=== PATIENT | male | born 1945 | race African-American/Black ===

== ENCOUNTER 2018-01-23 20:05 | Inpatient (IN) | payer MEDICARE, BC ==
--- NOTE | 2018-01-23 20:25 | ER Document Report ---
ED General - General Stated Complaint: STROKE LIKE SYMPTOMS Time Seen by Provider: 01/23/18 20:24 Notes: Patient is a 72-year-old male with diabetes and hypertension that presents to the emergency department for chief complaint of facial droop, slurred speech and weakness. Patient is unable to provide any significant history at this time. Apparently a neighbor had checked on him and found that he had a facial droop and slurred speech so they called EMS and he was brought to the emergency department. Per EMS, the patient had high blood pressure, diabetes and CAD had a prior stroke 20 years ago without deficits and prior to this he was speaking normally, and acting normally and did ambulate. Patient has significant dysarthria, and no further history is obtainable at this time. Past Medical History: Hypertension, diabetes mellitus, CAD, prior CVA Past Surgical History: Not obtainable at this time secondary to dysarthria Social History: Lives at home Family History: Reviewed and noncontributory for presenting illness Allergies: Reviewed, see documented allergy list. REVIEW OF SYSTEMS: Complete review of systems is unobtainable at this time secondary to the patient 's aphasia and dysarthria PHYSICAL EXAMINATION: Vital signs reviewed, nursing noted reviewed. GENERAL: Elderly male, no acute respiratory distress HEAD: Atraumatic, normocephalic. EYES: Eyes appear normal, extraocular movements intact, sclera anicteric, conjunctiva are normal. ENT: nares patent, oropharynx clear without exudates. Moist mucous membranes. Right-sided facial droop, severe dysarthria NECK: Normal range of motion, supple without lymphadenopathy LUNGS: Breath sounds clear to auscultation bilaterally and equal. No wheezes rales or rhonchi. HEART: Regular rate and rhythm without murmurs ABDOMEN: Soft, nontender, normoactive bowel sounds. No rebound, guarding, or rigidity. No masses appreciated. EXTREMITIES: Nontender, good range of motion, no pitting or edema. Strength is +4/5 on the right compared to the left which is 5+5. NEUROLOGICAL: NIH stroke scale score: 10, for facial droop on the right, severe dysarthria, expressive aphasia, right upper and lower extremity weakness, and disorientation PSYCH: Normal mood, normal affect. SKIN: Warm, Dry, normal turgor, no rashes or lesions noted on exposed skin Past Medical History - Social History Smoking Status: Unknown if Ever Smoked Family History: Other - Not obtainable. Physical Exam - Vital signs Vitals: Resp Pulse Ox 17 97 01/23/18 20:16 01/23/18 20:16 Course - Re-evaluation Re-evalutation: Patient seen and examined vital signs reviewed. Laboratory data and imaging were ordered as appropriate for the patient's presenting symptoms and complaint, with consideration of any critical or life threatening conditions that may be associated with their obtained history and exam as noted above. Results were reviewed when available and demonstrated renal impairment, no baseline for comparison, patient's blood pressure was noted to be elevated upon arrival, patient was noted to be on carvedilol and amlodipine, but neighbors stated that the patient may not be taking his medications according to EMS. NIH stroke scale score: 10 Patient is not a TPA candidate as he was last seen normal 2 days ago The patient was re-evaluated and was his speech was somewhat improved, but still rather aphasic, and had persistent weakness on the right side. Evaluation was most consistent with Acute CVA, renal impairment, abnormal troponin Results were discussed with the patient at this point after careful consideration I feel that that patient should be admitted to the hospital. This was discussed with the patient that it is in the best interest for their care to be admitted for further evaluation and management. Patient agreed with this plan of care. A call was placed to the admitted physician, Dr. Rios who graciously accepted the patient onto their service. *Note is created using voice recognition software and may contain spelling, syntax or grammatical errors. Laboratory 01/23/18 01/23/18 01/23/18 20:19 20:20 20:20 WBC 8.1 RBC 4.64 Hgb 14.2 Hct 41.7 MCV 90 MCH 30.6 MCHC 34.1 RDW 14.3 H Plt Count 245 Seg Neutrophils % 76.7 Lymphocytes % 12.8 L Monocytes % 9.1 Eosinophils % 0.6 Basophils % 0.8 Absolute Neutrophils 6.2 Absolute Lymphocytes 1.0 Absolute Monocytes 0.7 Absolute Eosinophils 0.0 Absolute Basophils 0.1 PT 14.1 INR 1.04 APTT 29.3 Sodium Potassium Chloride Carbon Dioxide Anion Gap BUN Creatinine Est GFR ( Amer) Est GFR (Non-Af Amer) Glucose POC Glucose 115 H Calcium Total Bilirubin Direct Bilirubin Neonat Total Bilirubin Neonat Direct Bilirubin Neonat Indirect Bili AST ALT Alkaline Phosphatase Creatine Kinase CK-MB (CK-2) Troponin I Total Protein Albumin 01/23/18 01/23/18 20:20 20:20 WBC RBC Hgb Hct MCV MCH MCHC RDW Plt Count Seg Neutrophils % Lymphocytes % Monocytes % Eosinophils % Basophils % Absolute Neutrophils Absolute Lymphocytes Absolute Monocytes Absolute Eosinophils Absolute Basophils PT INR APTT Sodium 143.6 Potassium 4.3 Chloride 107 Carbon Dioxide 23 Anion Gap 14 BUN 34 H Creatinine 1.83 H Est GFR ( Amer) 45 L Est GFR (Non-Af Amer) 37 L Glucose 126 H POC Glucose Calcium 9.1 Total Bilirubin 1.5 H Direct Bilirubin 0.5 H Neonat Total Bilirubin Not Reportable Neonat Direct Bilirubin Not Reportable Neonat Indirect Bili Not Reportable AST 63 H ALT 25 Alkaline Phosphatase 77 Creatine Kinase 745 H CK-MB (CK-2) 1.32 Troponin I 0.034 Total Protein 7.7 Albumin 4.0 - Vital Signs Vital signs: Temp Pulse Resp BP Pulse Ox 98.0 F 73 17 236/98 H 99 01/23/18 20:20 01/23/18 21:00 01/23/18 22:00 01/23/18 22:00 01/23/18 22:00 - Laboratory Result Diagrams: 01/23/18 20:20 01/23/18 20:20 Laboratory results interpreted by me: 01/23/18 01/23/18 01/23/18 20:19 20:20 20:20 RDW 14.3 H Lymphocytes % 12.8 L BUN 34 H Creatinine 1.83 H Est GFR ( Amer) 45 L Est GFR (Non-Af Amer) 37 L Glucose 126 H POC Glucose 115 H Total Bilirubin 1.5 H Direct Bilirubin 0.5 H AST 63 H Creatine Kinase 745 H - EKG Interpretation by Me Additional EKG results interpreted by me: EKG demonstrates sinus rhythm with a ventricular rate of 64 bpm, normal axis, QTC 463 ms, there is slight ST depressions in leads II, III and aVF, as well as in leads V5 and V6, and a deep T wave inversion in lead V4. No prior EKG available for comparison. Critical Care Note - Critical Care Note Total time excluding time spent on procedures (mins): 38 Comments: Critical care time 38 minutes exclusive from separate billable procedures for a patient requiring complex medical decision making, and high potential for clinical deterioration. In a patient with severe CVA symptoms, and market hypertension, requiring rapid assessment and frequent reassessments. Time spent obtaining history from patient or surrogate, discussions with consultants, development of treatment plan with patient or surrogate, evaluation of patient' s response to treatment, examination of patient, ordering and performing treatments and interventions, ordering and review of laboratory studies, re- evaluation of patient's condition, ordering and review of radiographic studies and review of old charts Discharge - Discharge Clinical Impression: Acute CVA (cerebrovascular accident), Severe dysarthria, Renal impairment, Elevated troponin Hypertension Qualifiers: Hypertension type: unspecified Qualified Code(s): I10 - Essential (primary) hypertension Condition: Stable Disposition: ADMITTED INPATIENT Admitting Provider: Hospitalist - Dr. Rios Unit Admitted: [facility]
[2018-01-23 20:45] LABS: INTERNATIONAL RATION (INR) 1.04; PROTHROMBIN TIME 14.1 SEC (11.4-15.4)
[2018-01-23 20:46] LABS: PARTIAL THROMBOPLASTIN TIME 29.3 SEC (23.5-35.8)
[2018-01-23 20:48] LABS: ABSOLUTE BASOPHILS # (AUTO) 0.1 10^3/uL (0.0-0.2); ABSOLUTE MONOCYTES (AUTO) 0.7 10^3/uL (0.1-1.4); ABSOLUTE NEUT (AUTO) 6.2 10^3/uL (1.7-8.2); BASOPHILS % (AUTO) 0.8 % (0-2); EOSINOPHILS % (AUTO) 0.6 % (0-6); HEMATOCRIT 41.7 % (37.9-51.0); HEMOGLOBIN 14.2 g/dL (13.5-17.0); LYMPHOCYTES % (AUTO) 12.8 % (13-45); MEAN CORPUSCULAR HEMOGLOBIN 30.6 pg (27.0-33.4); MEAN CORPUSCULAR HGB CONC 34.1 g/dL (32.0-36.0); MEAN CORPUSCULAR VOLUME 90 fl (80-97); MONOCYTES % (AUTO) 9.1 % (3-13); PLATELET COUNT 245 10^3/uL (150-450); RED BLOOD COUNT 4.64 10^6/uL (4.35-5.55); RED CELL DISTRIBUTION WIDTH 14.3 % (11.5-14.0); SEGMENTED NEUTROPHILS % (AUTO) 76.7 % (42-78); TOTAL CELLS COUNTED % (AUTO) 100 %; WHITE BLOOD COUNT 8.1 10^3/uL (4.0-10.5)
[2018-01-23 20:56] LABS: ALANINE AMINOTRANSFERASE 25 U/L (21-72); ALKALINE PHOSPHATASE 77 U/L (38-126); ANION GAP 14 (5-19); ASPARTATE AMINO TRANSFERASE 63 U/L (17-59); BILIRUBIN,DIRECT 0.5 mg/dL (0.0-0.4); BILIRUBIN,TOTAL 1.5 mg/dL (0.2-1.3); BLOOD UREA NITROGEN 34 mg/dL (7-20); CALCIUM 9.1 mg/dL (8.4-10.2); CARBON DIOXIDE 23 mmol/L (22-30); CHLORIDE 107 mmol/L (98-107); CREATINE KINASE 745 U/L (55-170); GLUCOSE 126 mg/dL (75-110); POTASSIUM 4.3 mmol/L (3.6-5.0); SODIUM 143.6 mmol/L (137-145); TOTAL PROTEIN 7.7 g/dL (6.3-8.2)
[2018-01-23 21:23] LABS: CREATINE KINASE MB 1.32 ng/mL (<4.55)
[2018-01-23 21:26] LABS: TROPONIN I 0.034 ng/mL
--- NOTE | 2018-01-23 22:10 | RADIOLOGY REPORT (SQ) ---
Chest single view on 01/23/2018 at 8:59 PM CLINICAL INDICATION: Right-sided weakness, dysarthria COMPARISON: None FINDINGS: The lungs are clear. Cardiac, hilar and mediastinal contours are within normal limits. Pulmonary vascularity is within normal limits. No bony abnormality is noted. IMPRESSION: No active disease.
--- NOTE | 2018-01-23 22:20 | RADIOLOGY REPORT (SQ) ---
CT head without contrast on 01/23/2018 at 8:49 PM CLINICAL INDICATION: Right-sided weakness, severe dysarthria TECHNIQUE: Multiple axial images are obtained throughout the head without the administration of contrast. This exam was performed according to our departmental dose-optimization program, which includes automated exposure control, adjustment of the mA and/or kV according to patient size and/or use of iterative reconstruction technique. Total DLP is 1070.38 mGy*cm. COMPARISON: None FINDINGS: There is mild generalized cerebral atrophy. There is low-density in the periventricular white matter consistent with chronic small vessel ischemic changes. There are multiple small bilateral periventricular lacunar infarcts that appear to all be chronic. If there is high clinical concern for acute infarct, MRI could better evaluate. There is no hemorrhage. There are no abnormal extra-axial fluid collections. There is no mass, mass effect or midline shift. No bony abnormality is noted. IMPRESSION: Atrophy and chronic small vessel ischemic changes with tiny likely all old bilateral lacunar infarcts but if there is high clinical concern for acute infarct, MRI could better evaluate.
[2018-01-24] MEDS ORDERED: DEXTROSE 50%-WATER 25 GM/50 ML DISP.SYRIN IV PRN ×2 (01:24)
[2018-01-24] MEDS ORDERED: NICARDIPINE HCL RTU, ISO-OS 20 MG/200 ML RTUINJ IV PRN (01:24)
[2018-01-24] MEDS ORDERED: GLUCAGON,HUMAN RECOMB 1 MG INJ SUBCUT PRN (01:24)
[2018-01-24] MEDS ORDERED: DOCUSATE SODIUM 100 MG CAPSULE PO PRN (01:24)
[2018-01-24] MEDS ORDERED: DEXTROSE 40% GEL 15 GM TUBE PO PRN ×2 (01:24)
[2018-01-24] MEDS ORDERED: ACETAMINOPHEN 325 MG TABLET PO PRN (01:24)
[2018-01-24] MEDS ORDERED: MAGNESIUM HYDROXIDE SUSP 30 ML UDCUP PO PRN (01:24)
[2018-01-24] MEDS: HYDRALAZINE HCL INJ/PF 20 MG/1 ML SDV IV PRN ×3 (02:13→23:40)
--- NOTE | 2018-01-24 05:27 | PDOC H&P ---
History of Present Illness Admission Date/PCP: 01/23/18 23:42 Patient complains of: Strokelike symptoms History of Present Illness: LEATHA JIMENEZ is a 72 year old male with a past medical history of remote CVA without residual deficits, hypertension, diabetes and coronary artery disease. He presents 48 hours after last seen in his normal state. He was found by his neighbor with a right-sided weakness, facial droop and slurred speech. In the emergency room he has persistent symptoms in addition to a right upper extremity contracture, both expressive, receptive aphasia and a blood pressure of 240/113. Patient is unable to provide meaningful history, awake and alert protecting his airway. Medication bottles at bedside indicate medication noncompliance with months of full medication bottles. Past Medical History Cardiac Medical History: Reports: Myocardial Infarction Endocrine Medical History: Reports: Diabetes Mellitus Type 2 GI Medical History: Reports: Gastroesophageal Reflux Disease Psychiatric Medical History: Denies: Depression Social History Information Source: Emergency Med Personnel, [facility] Records Lives with: Alone Smoking Status: Current Every Day Smoker - Advance Directive Resuscitation Status: Full Code Family History Family History: Other - Not obtainable. Parental Family History Reviewed: No - Unobtainable Children Family History Reviewed: No - Unobtainable Sibling(s) Family History Reviewed.: No - Unobtainable Medication/Allergy Allergies/Adverse Reactions: No Known Allergies Allergy (Unverified 01/24/18 01:33) Review of Systems ROS unobtainable: Due to mental status - Aphasia Physical Exam Vital Signs: Temp Pulse Resp BP Pulse Ox 98.0 F 66 11 L 173/89 H 97 01/23/18 20:20 01/24/18 04:00 01/24/18 04:15 01/24/18 04:15 01/24/18 04:15 General appearance: PRESENT: cooperative, disheveled, severe distress Head exam: PRESENT: atraumatic, normocephalic Eye exam: PRESENT: conjunctiva pink, EOMI, PERRLA. ABSENT: scleral icterus Ear exam: PRESENT: normal external ear exam Mouth exam: PRESENT: dry mucosa. ABSENT: laceration, tongue midline Neck exam: ABSENT: carotid bruit, JVD, lymphadenopathy, thyromegaly Respiratory exam: PRESENT: crackles, prolonged expiratory phas, unlabored. ABSENT: rales, rhonchi, wheezes Cardiovascular exam: PRESENT: RRR. ABSENT: diastolic murmur, rubs, systolic murmur Pulses: PRESENT: normal dorsalis pedis pul Vascular exam: PRESENT: normal capillary refill GI/Abdominal exam: PRESENT: normal bowel sounds, soft. ABSENT: distended, guarding, mass, organolmegaly, rebound, tenderness Rectal exam: PRESENT: deferred Extremities exam: ABSENT: calf tenderness, clubbing, full ROM - Right upper extremity weakness and flexion contracture, pedal edema Musculoskeletal exam: ABSENT: full ROM - Right upper extremity weakness and flexion contracture Neurological exam: PRESENT: alert, awake, oriented to person, aphasic. ABSENT: altered, oriented to place, oriented to time, CN II-XII grossly intact - Right- sided facial droop Psychiatric exam: PRESENT: appropriate affect, normal mood. ABSENT: homicidal ideation, suicidal ideation Skin exam: PRESENT: dry, intact, warm. ABSENT: cyanosis, rash Results Impressions: Chest X-Ray 01/23/18 20:33 IMPRESSION: No active disease. Head CT 01/23/18 20:33 IMPRESSION: Atrophy and chronic small vessel ischemic changes with tiny likely all old bilateral lacunar infarcts but if there is high clinical concern for acute infarct, MRI could better evaluate. Assessment & Plan - Diagnosis (1) Acute CVA (cerebrovascular accident) Is this a current diagnosis for this admission?: Yes Plan: Secondary to hypertensive emergency and noncompliance. CVA care set, follow-up MRI head and carotid Doppler. (2) Hypertensive emergency Is this a current diagnosis for this admission?: Yes Plan: Permissive hypertension, IV hydralazine, Vasotec as needed (3) Diabetes Is this a current diagnosis for this admission?: Yes Plan: Suzy sliding scale, follow-up A1c - Time Time Spent: 50 to 70 Minutes - Inpatient Certification Medical Necessity: Need Close Monitoring Due to Risk of Patient Decompensation
[2018-01-24 05:54] LABS: ABSOLUTE BASOPHILS # (AUTO) 0.1 10^3/uL (0.0-0.2); ABSOLUTE EOSINOPHILS # (AUTO) 0.1 10^3/uL (0.0-0.6); ABSOLUTE LYMPHOCYTES (AUTO) 1.3 10^3/uL (0.5-4.7); ABSOLUTE MONOCYTES (AUTO) 0.8 10^3/uL (0.1-1.4); ABSOLUTE NEUT (AUTO) 4.3 10^3/uL (1.7-8.2); BASOPHILS % (AUTO) 0.8 % (0-2); EOSINOPHILS % (AUTO) 1.3 % (0-6); HEMOGLOBIN 13.9 g/dL (13.5-17.0); LYMPHOCYTES % (AUTO) 19.8 % (13-45); MEAN CORPUSCULAR HEMOGLOBIN 30.7 pg (27.0-33.4); MEAN CORPUSCULAR HGB CONC 34.6 g/dL (32.0-36.0); MEAN CORPUSCULAR VOLUME 89 fl (80-97); MONOCYTES % (AUTO) 11.9 % (3-13); PLATELET COUNT 214 10^3/uL (150-450); RED BLOOD COUNT 4.51 10^6/uL (4.35-5.55); RED CELL DISTRIBUTION WIDTH 13.8 % (11.5-14.0); SEGMENTED NEUTROPHILS % (AUTO) 66.2 % (42-78); TOTAL CELLS COUNTED % (AUTO) 100 %; WHITE BLOOD COUNT 6.5 10^3/uL (4.0-10.5)
[2018-01-24 06:16] LABS: ANION GAP 10 (5-19); BLOOD UREA NITROGEN 32 mg/dL (7-20); CALCIUM 9.3 mg/dL (8.4-10.2); CARBON DIOXIDE 24 mmol/L (22-30); CHLORIDE 109 mmol/L (98-107); GLUCOSE 43 mg/dL (75-110); SODIUM 142.9 mmol/L (137-145)
[2018-01-24] MEDS: HEPARIN SOD (PORCINE) 5,000 UNIT/ML 1 ML SYRINGE SUBCUT SCH ×3 (06:36→22:09)
[2018-01-24] MEDS: ASPIRIN 300 MG SUPP, RECTAL PR SCH (10:00)
[2018-01-24] MEDS ORDERED: ASPIRIN 81 MG TABLET, ENT COATED PO SCH (10:00)
--- NOTE | 2018-01-24 10:01 | RADIOLOGY REPORT (SQ) ---
EXAM DESCRIPTION: MRI HEAD WITHOUT COMPLETED DATE/TIME: 01/24/2018 9:40 am REASON FOR STUDY: cva COMPARISON: CT brain from 1 day previously. TECHNIQUE: Multiplanar imaging includes non-contrasted T1, T2, FLAIR, and diffusion with ADC map seq uences. Images stored on PACS. LIMITATIONS: None. FINDINGS: ANATOMY: No anomalies. Normal vascular flow voids. Pituitary fossa normal. CSF SPACES: Mild atrophy related prominence. CEREBRUM: Patchy multifocal FLAIR hyperintensities in the white matter. Consistent with small vessel disease. POSTERIOR FOSSA: No signal alteration. No hemorrhage. No edema, masses or mass effect. Internal marty tory canals, cerebello-pontine angles, mastoids normal. DIFFUSION IMAGING: Abnormal. Acute left MCA distribution infarct. Restricted diffusion in the insul a, left frontoparietal cortex and adjacent white matter. ORBITS: No masses. Globes normal. PARANASAL SINUSES: No fluid levels. Mucosa normal. OTHER: No other significant finding. IMPRESSION: 1. Acute left MCA distribution infarct. 2. Other changes include atrophy and chronic small vessel disease. EVIDENCE OF ACUTE STROKE: NO. TECHNICAL DOCUMENTATION: JOB ID: [id number] [employer]- All Rights Reserved Reading location - IP/workstation name: [email or web address]
--- NOTE | 2018-01-24 10:53 | PDOC PROGRESS REPORT ---
Subjective Progress Note for:: 01/24/18 Subjective:: Mr. Kruger is a 2 year old male with a past medical history of remote CVA without significant residual deficits, hypertension, diabetes and coronary artery disease who was brought in with right arm weakness, right facial droop and slurring of speech. He did have mild receptive and expressive aphasia upon presentation. He was not a TPA candidate. He reportedly failed swallow evaluation in the ER. No acute event overnight. Patient seen with daughter on the bedside. He does have difficulty articulating but is able to answer my questions coherently. Daughter says the aphasia has improved. He continues to have weakness on the right arm. He denies acute complaint. Denies headache, nausea, or dizziness. He denies chest pain or SOB. He has been NPO and is still awaiting for speech eval. Reason For Visit: CVA HTN EMERGENCY Physical Exam Vital Signs: Temp Pulse Resp BP Pulse Ox 98.6 F 68 16 194/81 H 100 01/24/18 07:23 01/24/18 08:00 01/24/18 08:00 01/24/18 08:00 01/24/18 08:00 Intake & Output 01/23/18 01/24/18 01/25/18 06:59 06:59 06:59 Weight 161 lb 9.581 oz General appearance: PRESENT: no acute distress Head exam: PRESENT: atraumatic, normocephalic Eye exam: PRESENT: conjunctiva pink, EOMI, PERRLA. ABSENT: scleral icterus Ear exam: PRESENT: normal external ear exam Mouth exam: PRESENT: moist, tongue midline Neck exam: ABSENT: carotid bruit, JVD, lymphadenopathy, thyromegaly Respiratory exam: PRESENT: clear to auscultation doug. ABSENT: rales, rhonchi, wheezes Cardiovascular exam: PRESENT: RRR. ABSENT: diastolic murmur, rubs, systolic murmur Pulses: PRESENT: normal dorsalis pedis pul GI/Abdominal exam: PRESENT: normal bowel sounds, soft. ABSENT: distended, guarding, mass, organolmegaly, rebound, tenderness Neurological exam: PRESENT: alert, awake, oriented to person, oriented to place , other - noteof a roght facial droop, 3/5 motor strength on the right arm, intact on the other extremities, intact sensation Results Laboratory Results: 01/24/18 05:30 01/24/18 05:30 01/24/18 01/24/18 05:30 05:30 WBC 6.5 RBC 4.51 Hgb 13.9 Hct 40.0 MCV 89 MCH 30.7 MCHC 34.6 RDW 13.8 Plt Count 214 Seg Neutrophils % 66.2 Lymphocytes % 19.8 Monocytes % 11.9 Eosinophils % 1.3 Basophils % 0.8 Absolute Neutrophils 4.3 Absolute Lymphocytes 1.3 Absolute Monocytes 0.8 Absolute Eosinophils 0.1 Absolute Basophils 0.1 Sodium 142.9 Potassium 4.0 Chloride 109 H Carbon Dioxide 24 Anion Gap 10 BUN 32 H Creatinine 1.63 H Est GFR ( Amer) 51 L Est GFR (Non-Af Amer) 42 L Glucose 43 L Calcium 9.3 Impressions: Chest X-Ray 01/23/18 20:33 IMPRESSION: No active disease. Head CT 01/23/18 20:33 IMPRESSION: Atrophy and chronic small vessel ischemic changes with tiny likely all old bilateral lacunar infarcts but if there is high clinical concern for acute infarct, MRI could better evaluate. Head MRI 01/24/18 01:25 IMPRESSION: 1. Acute left MCA distribution infarct. 2. Other changes include atrophy and chronic small vessel disease. EVIDENCE OF ACUTE STROKE: NO. Assessment & Plan - Diagnosis (1) Acute CVA (cerebrovascular accident) Is this a current diagnosis for this admission?: Yes Plan: MRI just came back and did show acute infarct on the Left MCA distribution. Patient does have residual/new right arm weakness. Still NPO. Awaiting speech eval for formal swallow testing. PT also consulted. Will switch aspirin to rectal route for now until cleared by speech for diet. Patient lives alone. Daughter says she wants to have patient transferred to acute rehab at [facility] where she works when patient is deemed fit for transfer/discharge. (2) Hypertensive urgency Is this a current diagnosis for this admission?: Yes Plan: Blood pressures running high in the 180-190s systolic. Allow permissive hypertension in the first 24 hrs (160s systolic) in the setting of acute ischemic stroke. On IV hydralazine and labetalol prn. Will resume PO meds including amlodipine, Coreg and ramipril once cleared for PO intake. (3) CAD (coronary artery disease) Is this a current diagnosis for this admission?: Yes Plan: Stable. Continue aspirin and statin. (4) Diabetes Is this a current diagnosis for this admission?: Yes Plan: Recent sugar was low at 43. Will recheck sugar and continue accuchecks q6h. No insulin sliding scale for now. - Time Time Spent with patient: 25-34 minutes
[2018-01-24] MEDS: LABETALOL HCL INJ 20 MG/4 ML DISP.SYRIN IV PRN (11:39)
[2018-01-24] MEDS: DEXTROSE 5%-NORMAL SALINE 1,000 ML IV PRN ×2 (12:50→23:31)
--- NOTE | 2018-01-24 16:53 | EKG REPORT ---
SEVERITY:- ABNORMAL ECG - SINUS RHYTHM LVH WITH SECONDARY REPOLARIZATION ABNORMALITY ANTERIOR INFARCT, AGE INDETERMINATE : Confirmed by: Susannah Beckett MD 24-Jan-2018 16:53:02
[2018-01-24] MEDS ORDERED: CARVEDILOL 6.25 MG TABLET PO ONE (17:15)
[2018-01-24] MEDS ORDERED: AMLODIPINE BESYLATE 10 MG TABLET PO ONE (18:00)
[2018-01-24] MEDS: ATORVASTATIN CALCIUM 80 MG TABLET PO SCH (22:09)
[2018-01-25] MEDS: HEPARIN SOD (PORCINE) 5,000 UNIT/ML 1 ML SYRINGE SUBCUT SCH ×3 (06:56→21:13)
[2018-01-25 09:04] LABS: ABSOLUTE BASOPHILS # (AUTO) 0.1 10^3/uL (0.0-0.2); ABSOLUTE EOSINOPHILS # (AUTO) 0.1 10^3/uL (0.0-0.6); ABSOLUTE LYMPHOCYTES (AUTO) 1.4 10^3/uL (0.5-4.7); ABSOLUTE MONOCYTES (AUTO) 0.7 10^3/uL (0.1-1.4); ABSOLUTE NEUT (AUTO) 2.8 10^3/uL (1.7-8.2); BASOPHILS % (AUTO) 1.1 % (0-2); EOSINOPHILS % (AUTO) 1.1 % (0-6); HEMATOCRIT 38.8 % (37.9-51.0); HEMOGLOBIN 13.5 g/dL (13.5-17.0); LYMPHOCYTES % (AUTO) 28.1 % (13-45); MEAN CORPUSCULAR HEMOGLOBIN 31.1 pg (27.0-33.4); MEAN CORPUSCULAR HGB CONC 34.8 g/dL (32.0-36.0); MEAN CORPUSCULAR VOLUME 89 fl (80-97); MONOCYTES % (AUTO) 13.3 % (3-13); PLATELET COUNT 243 10^3/uL (150-450); RED BLOOD COUNT 4.35 10^6/uL (4.35-5.55); RED CELL DISTRIBUTION WIDTH 14.3 % (11.5-14.0); SEGMENTED NEUTROPHILS % (AUTO) 56.4 % (42-78); TOTAL CELLS COUNTED % (AUTO) 100 %
[2018-01-25 09:24] LABS: ANION GAP 5 (5-19); BLOOD UREA NITROGEN 23 mg/dL (7-20); CALCIUM 9.2 mg/dL (8.4-10.2); CARBON DIOXIDE 27 mmol/L (22-30); CHLORIDE 112 mmol/L (98-107); CHOLESTEROL 192.97 mg/dL (0-200); GLUCOSE 102 mg/dL (75-110); POTASSIUM 3.9 mmol/L (3.6-5.0); SODIUM 144.2 mmol/L (137-145); TRIGLYCERIDES 112 mg/dL (<150)
[2018-01-25 09:34] LABS: DIRECT LDL 86 mg/dL (<100)
[2018-01-25] MEDS: AMLODIPINE BESYLATE 10 MG TABLET PO SCH (10:13)
[2018-01-25] MEDS: RAMIPRIL 10 MG CAPSULE PO SCH (10:13)
[2018-01-25] MEDS: CARVEDILOL 6.25 MG TABLET PO SCH (10:14)
[2018-01-25] MEDS: ASPIRIN 300 MG SUPP, RECTAL PR SCH (10:14)
--- NOTE | 2018-01-25 10:58 | RADIOLOGY REPORT (SQ) ---
EXAM DESCRIPTION: FLAKOIE SWALLOW COMPLETED DATE/TIME: 01/25/2018 9:25 am REASON FOR STUDY: ssx aspiration on thins at bedside COMPARISON: None. TECHNIQUE: Videofluoroscopic swallowing examination was performed in conjunction with speech patholo gy. Videofluoroscopic imaging was obtained and reviewed and these are the findings: RADIATION DOSE: Fluoro time 2.03 minutes 1 images saved to PACS. LIMITATIONS: None FINDINGS: The patient was brought into the fluoro room and placed upright on a modified barium swall ow chair. The patient was then given multiple consistencies mixed with barium to swallow under live fluoroscopic video guidance. According to the Speech Pathologist there was aspiration seen with thin barium. Significant residuals were seen in the vallecula and piriform sinuses. These residuals hiar ared poorly with subsequent swallows. Please refer to the speech pathology report for further details . IMPRESSION: ASPIRATION SEEN WITH THIN BARIUM.PLEASE SEE SPEECH PATHOLOGIST REPORT FOR OTHER FINDINGS AND RECOMMENDATIONS. COMMENT: None Quality ID [id number]: Final reports for procedures using fluoroscopy that document radiation exposure juan alvaro, or exposure time and number of fluorographic images (if radiation exposure indices are not avail able) TECHNICAL DOCUMENTATION: JOB ID: [id number] [employer]- All Rights Reserved Reading location - IP/workstation name: [email or web address] [id number]
--- NOTE | 2018-01-25 11:28 | RADIOLOGY REPORT (SQ) ---
EXAM DESCRIPTION: CAROTID DOPPLER COMPLETED DATE/TIME: 01/25/2018 9:16 am REASON FOR STUDY: cva COMPARISON: None. TECHNIQUE: Grayscale ultrasound, Doppler velocity and spectra, and color Doppler images acquired of the extra-cranial carotid and vertebral arteries. Images stored on PACS. LIMITATIONS: None. FINDINGS: RIGHT CAROTID CCA Velocities: Within normal limits. ICA Velocities Peak systolic 0.82 m/s. End diastolic 0.20 m/s. Proximal ICA/CCA peak systolic ratio 0.9. Mild plaque in the bulb. LEFT CAROTID CCA Velocities: Within normal limits. ICA Velocities Peak systolic 0.97 m/s. End diastolic 0.20 m/s. Proximal ICA/CCA peak systolic ratio 0.9. Mild plaque in the bulb. VERTEBRAL ARTERIES: Antegrade flow. Normal waveforms. SUBCLAVIAN ARTERIES: Not imaged. OTHER: No other significant finding. IMPRESSION: NO HEMODYNAMICALLY SIGNIFICANT STENOSIS. COMMENT: Quality ID #[id number]: Velocity criteria are extrapolated from the diameter data as defined by t he Society of Radiologists in Ultrasound Consensus Conference. Radiology 2003: 229; 340-346. TECHNICAL DOCUMENTATION: JOB ID: [id number] [employer]- All Rights Reserved Reading location - IP/workstation name: [email or web address]
--- NOTE | 2018-01-25 17:37 | ST Inp Modified Barium Swallow ---
Medical Diagnosis - Medical Diagnoses Medical Diagnosis Description & ICD-10 Code(s): CVA, dysphagia ST Inpatient [facility] [place] - General Date: 01/25/18 Date of Onset: 01/24/18 - History History Obtained From: Other - EMR -: Medical - Patient admitted for acute CVA. Failed nursing swallow screen and demonstrated signs of aspiration on thin liquids at bedside. Prior CVA also documented with residual visual field deficits. Medications: Medications Reviewed Allergies: No known allergies - Subjective Current Nutritional Means: PO Current PO Diet: Mechanical- ground, Thickened liquids - nectar Current Symptoms: Coughing Pain: Patient reports, 0/5 - Objective Assessment: Upright, Left Lateral - Food Trials Food Trials Used: Thin liquids, [place] thick liquids, Pureed The Patient: Required Assist, fed by ST, via spoon - Assessment Labial Function: Impaired Lingual Function: Impaired Dentition: Partial Laryngeal Function: no volitional swallow, no volitional cough/clear - Pharyngeal Stage Initiation of Pharyngeal Stage: Delayed Reflex Delay Time (seconds): 13 Reduced Velo-Pharyngeal Closure: no Reduced Pressure Generation: Yes Reduced Tongue Base Retraction: Yes Pre-Swallowing Pooling in Valleculae: Moderate Pre-Swallowing Pooling in Pyriforms: None Reduced Thyro-Hyiod Approximation: Yes Reduced Epiglottic Excursion: No Reduced Pharyngeal Peristalsis: Yes Multiple Swallows With: Ineffective Clearance Post Swallow Residuals in Valleculae: Significant Post Swallow Residuals in Pyriforms: Significant - Impression/Summary Tracheal Aspiration: yes - on thin liquid trial Patient Presents With: Oral-Pharyngeal dysph., Severe Risk of Aspiration: Severe Risk of Nutritional Compromise: Moderate - Recommendations NPO: therapeutic trials Liquid Diet Recommendations: [place]-Thick Dysphagia Therapy with COORDINATOR SKILL TRAINING PROGRAM: Yes, Inpatient Recommended Techniques: Fully Upright During Meal, Small Bites and Sips Other Recommendations: May need to consider alternative means of nutrition/ hydration due to high risk of aspiration on modified textures. Discussed recommendaitons with physician and nursing staff. - Time Total Time: 30 Total Timed Minutes: 30
--- NOTE | 2018-01-25 19:04 | PDOC PROGRESS REPORT ---
Subjective Progress Note for:: 01/25/18 Subjective:: Mr. Kruger is a 72 year old male with a past medical history of remote CVA without significant residual deficits, hypertension, diabetes and coronary artery disease who was brought in with right arm weakness, right facial droop and slurring of speech. He did have mild receptive and expressive aphasia upon presentation. He was not a TPA candidate. He reportedly failed swallow evaluation in the ER. No acute event overnight. He has some difficulty articulating but is coherent and is able answer appropriately. He continues to have weakness on the right arm and right facial droop. He denies acute complaint. Denies headache, nausea, or dizziness. He denies chest pain or SOB. Speech eval has done formal swallow evaluation and patient has significant retention and is deemed high risk for aspiration. Reason For Visit: CVA HTN EMERGENCY Physical Exam Vital Signs: Temp Pulse Resp BP Pulse Ox 97.7 F 55 L 20 166/85 H 98 01/25/18 17:18 01/25/18 17:18 01/25/18 17:18 01/25/18 17:18 01/25/18 17:18 Intake & Output 01/24/18 01/25/18 01/26/18 06:59 06:59 06:59 Intake Total 1000 1150 Balance 1000 1150 Weight 161 lb 9.581 oz 159 lb 13.362 oz General appearance: PRESENT: no acute distress, well-developed, well-nourished Head exam: PRESENT: atraumatic, normocephalic Eye exam: PRESENT: conjunctiva pink, EOMI, PERRLA. ABSENT: scleral icterus Ear exam: PRESENT: normal external ear exam Mouth exam: PRESENT: moist, tongue midline Neck exam: ABSENT: carotid bruit, JVD, lymphadenopathy, thyromegaly Respiratory exam: PRESENT: clear to auscultation doug. ABSENT: rales, rhonchi, wheezes Cardiovascular exam: PRESENT: RRR. ABSENT: diastolic murmur, rubs, systolic murmur Pulses: PRESENT: normal dorsalis pedis pul GI/Abdominal exam: PRESENT: normal bowel sounds, soft. ABSENT: distended, guarding, mass, organolmegaly, rebound, tenderness Rectal exam: PRESENT: deferred Neurological exam: PRESENT: alert, awake, oriented to person, oriented to place , oriented to time, oriented to situation, motor sensory deficit - right arm weakness 3/5, other - +right facial droop Results Laboratory Results: 01/25/18 08:25 01/25/18 08:25 01/25/18 01/25/18 08:25 08:25 WBC 5.0 RBC 4.35 Hgb 13.5 Hct 38.8 MCV 89 MCH 31.1 MCHC 34.8 RDW 14.3 H Plt Count 243 Seg Neutrophils % 56.4 Lymphocytes % 28.1 Monocytes % 13.3 H Eosinophils % 1.1 Basophils % 1.1 Absolute Neutrophils 2.8 Absolute Lymphocytes 1.4 Absolute Monocytes 0.7 Absolute Eosinophils 0.1 Absolute Basophils 0.1 Sodium 144.2 Potassium 3.9 Chloride 112 H Carbon Dioxide 27 Anion Gap 5 BUN 23 H Creatinine 1.46 H Est GFR ( Amer) 58 L Est GFR (Non-Af Amer) 48 L Glucose 102 Calcium 9.2 Triglycerides 112 Cholesterol 192.97 LDL Cholesterol Direct 86 VLDL Cholesterol 22.0 HDL Cholesterol 59 Impressions: Chest X-Ray 01/23/18 20:33 IMPRESSION: No active disease. Head CT 01/23/18 20:33 IMPRESSION: Atrophy and chronic small vessel ischemic changes with tiny likely all old bilateral lacunar infarcts but if there is high clinical concern for acute infarct, MRI could better evaluate. Head MRI 01/24/18 01:25 IMPRESSION: 1. Acute left MCA distribution infarct. 2. Other changes include atrophy and chronic small vessel disease. EVIDENCE OF ACUTE STROKE: NO. Carotid Doppler Study 01/25/18 00:00 IMPRESSION: NO HEMODYNAMICALLY SIGNIFICANT STENOSIS. Modified Barium Swallow 01/25/18 00:00 IMPRESSION: ASPIRATION SEEN WITH THIN BARIUM.PLEASE SEE SPEECH PATHOLOGIST REPORT FOR OTHER FINDINGS AND RECOMMENDATIONS. Assessment & Plan - Diagnosis (1) Acute CVA (cerebrovascular accident) Is this a current diagnosis for this admission?: Yes Plan: MRI just came back and did show acute infarct on the Left MCA distribution. Patient does have residual/new right arm weakness. Continue aspirin and statin. Speech therapy has done formal evaluation. Patient had significant retention and is deemed at high risk for aspiration. Discussed possibility of need for PEG tube with patient and daughter who is also a speech therapist. Patient and daughter are asking time to think about this. Patient lives alone. Daughter says she wants to have patient transferred to acute rehab at [facility] where she works when patient is deemed fit for transfer/discharge. (2) Hypertensive urgency Is this a current diagnosis for this admission?: Yes Plan: Blood pressures running high in the 180s. On IV hydralazine and labetalol prn. Will resume PO meds including amlodipine, Coreg. Resume ramipril. (3) CAD (coronary artery disease) Is this a current diagnosis for this admission?: Yes Plan: Stable. Continue aspirin and statin. (4) Diabetes Is this a current diagnosis for this admission?: Yes Plan: He has been started on D5NS due to hypoglycemic episodes. Continue accuchecks q6h. No insulin sliding scale for now. - Time Time Spent with patient: 25-34 minutes
[2018-01-25] MEDS: DEXTROSE 5%-NORMAL SALINE 1,000 ML IV PRN (19:45)
[2018-01-25] MEDS: LABETALOL HCL INJ 20 MG/4 ML DISP.SYRIN IV PRN (20:03)
[2018-01-25] MEDS: ATORVASTATIN CALCIUM 80 MG TABLET PO SCH (21:13)
[2018-01-26] MEDS: HEPARIN SOD (PORCINE) 5,000 UNIT/ML 1 ML SYRINGE SUBCUT SCH ×3 (05:35→21:31)
[2018-01-26 05:47] LABS: ANION GAP 7 (5-19); BLOOD UREA NITROGEN 19 mg/dL (7-20); CALCIUM 9.1 mg/dL (8.4-10.2); CARBON DIOXIDE 27 mmol/L (22-30); CHLORIDE 111 mmol/L (98-107); GLUCOSE 138 mg/dL (75-110); POTASSIUM 3.6 mmol/L (3.6-5.0); SODIUM 144.5 mmol/L (137-145)
[2018-01-26] MEDS: HYDRALAZINE HCL INJ/PF 20 MG/1 ML SDV IV PRN (08:16)
[2018-01-26] MEDS: AMLODIPINE BESYLATE 10 MG TABLET PO SCH (09:18)
[2018-01-26] MEDS: RAMIPRIL 10 MG CAPSULE PO SCH (09:18)
[2018-01-26] MEDS: CARVEDILOL 6.25 MG TABLET PO SCH (09:18)
[2018-01-26] MEDS ORDERED: HYDRALAZINE HCL 25 MG TABLET PO SCH (10:30)
--- NOTE | 2018-01-26 10:47 | PDOC PROGRESS REPORT ---
Subjective Progress Note for:: 01/26/18 Subjective:: 72-year-old male past medical history of CVA, hypertension, diabetes and CAD. Patient was admitted on 01/24/2018 complaining of right upper extremity weakness right facial droop slurred speech. It was noted that he had mild expressive and receptive aphasia in ED. No TPA candidate. MRI on 01/24/2018 showed acute left MCA distribution infarct. Status post modified barium swallow. Failed swallow eval. Recommendation is to take nectar and possibly an alternative route of p.o. intake due to high risk of aspiration. Patient's daughter who is also a speech therapist has been updated about the need for possible PEG tube placement. Patient and family to decide if they want to undergo a PEG tube placement. No acute events overnight. Patient has receptive and expressive aphasia takes him a while to answer questions, however follows commands albeit slowly. Denies any fever, chills, nausea, vomiting, chest pain, shortness of breath, diarrhea, constipation or any urinary symptoms. Reason For Visit: CVA HTN EMERGENCY Physical Exam Vital Signs: Temp Pulse Resp BP Pulse Ox 97.6 F 57 L 18 198/82 H 99 01/26/18 08:13 01/26/18 08:13 01/26/18 08:13 01/26/18 08:13 01/26/18 08:13 Intake & Output 01/25/18 01/26/18 01/27/18 06:59 06:59 06:59 Intake Total 1000 1458 Balance 1000 1458 Weight 72.5 kg 72.2 kg General appearance: PRESENT: no acute distress, well-developed, well-nourished Head exam: PRESENT: atraumatic, normocephalic Eye exam: PRESENT: conjunctiva pink, EOMI, PERRLA. ABSENT: scleral icterus Ear exam: PRESENT: normal external ear exam Mouth exam: PRESENT: moist, tongue midline Neck exam: ABSENT: carotid bruit, JVD, lymphadenopathy, thyromegaly Respiratory exam: PRESENT: clear to auscultation doug. ABSENT: rales, rhonchi, wheezes Cardiovascular exam: PRESENT: RRR. ABSENT: diastolic murmur, rubs, systolic murmur Pulses: PRESENT: normal dorsalis pedis pul Vascular exam: PRESENT: normal capillary refill GI/Abdominal exam: PRESENT: normal bowel sounds, soft. ABSENT: distended, guarding, mass, organolmegaly, rebound, tenderness Rectal exam: PRESENT: deferred Extremities exam: PRESENT: full ROM. ABSENT: calf tenderness, clubbing, pedal edema Neurological exam: PRESENT: alert, awake, oriented to person, oriented to place , oriented to time, CN II-XII grossly intact - Right facial droop, right upper extremity 2/5 strength.. ABSENT: motor sensory deficit Psychiatric exam: PRESENT: appropriate affect, normal mood. ABSENT: homicidal ideation, suicidal ideation Skin exam: PRESENT: dry, intact, warm. ABSENT: cyanosis, rash Results Laboratory Results: 01/25/18 08:25 01/26/18 04:29 01/26/18 04:29 Sodium 144.5 Potassium 3.6 Chloride 111 H Carbon Dioxide 27 Anion Gap 7 BUN 19 Creatinine 1.45 H Est GFR ( Amer) 58 L Est GFR (Non-Af Amer) 48 L Glucose 138 H Calcium 9.1 Impressions: Chest X-Ray 01/23/18 20:33 IMPRESSION: No active disease. Head CT 01/23/18 20:33 IMPRESSION: Atrophy and chronic small vessel ischemic changes with tiny likely all old bilateral lacunar infarcts but if there is high clinical concern for acute infarct, MRI could better evaluate. Head MRI 01/24/18 01:25 IMPRESSION: 1. Acute left MCA distribution infarct. 2. Other changes include atrophy and chronic small vessel disease. EVIDENCE OF ACUTE STROKE: NO. Carotid Doppler Study 01/25/18 00:00 IMPRESSION: NO HEMODYNAMICALLY SIGNIFICANT STENOSIS. Modified Barium Swallow 01/25/18 00:00 IMPRESSION: ASPIRATION SEEN WITH THIN BARIUM.PLEASE SEE SPEECH PATHOLOGIST REPORT FOR OTHER FINDINGS AND RECOMMENDATIONS. Assessment & Plan - Diagnosis (1) Acute CVA (cerebrovascular accident) Is this a current diagnosis for this admission?: Yes Plan: Left MCA ischemic infarct as per MRI head. Patient has right facial droop and right upper extremity weakness. Not a TPA candidate. Continue aspirin and statin. Continue ST PT OT. Patient failed swallow eval possible needs a PEG tube placement. Patient's daughter who is a speech therapist is aware of the situation. Pending decision on PEG tube placement. Patient lives alone the daughter prefers patient to be transferred to rehab at [facility] where she works. (2) CAD (coronary artery disease) Is this a current diagnosis for this admission?: Yes Plan: No active chest pain. Stable. Continue aspirin, statin, JUANJOSE and beta- blockers. Follow-up with cardiology as outpatient. Follow-up with PCP. (3) Hypertensive emergency Is this a current diagnosis for this admission?: Yes Plan: Pressure still in high 180s. Start hydralazine 25 every 8 continue labetalol as needed. Currently on amlodipine 10 mg, Coreg 25 twice daily, ramipril 10 mg daily Continue monitoring blood pressure and adjust meds as needed. (4) Acute renal failure Is this a current diagnosis for this admission?: Yes Plan: Possibly secondary to chronic uncontrolled hypertension and diabetes. Creatinine and electrolytes are stable. Outpatient nephrology follow-up. We will get a renal ultrasound. Continue to manage hypertension and diabetes. Avoid nephrotoxic medications. (5) Diabetes Is this a current diagnosis for this admission?: Yes Plan: A1c 5.2. Patient had one episode of hypoglycemia. Currently on D5 normal saline. Continue Accu-Chek. Hold insulin. Takes glimepiride at home. (6) Dyslipidemia Is this a current diagnosis for this admission?: Yes Plan: ASCVD >70%. Continue high intensity statins. Lifestyle and diet modification.
--- NOTE | 2018-01-26 10:52 | PDOC CONSULTATION ---
Consultation Consult Date: 01/26/18 Consult reason:: Evaluation for admission to acute inpatient rehabilitation History of Present Illness Admission Date/PCP: 01/24/18 01:24 History of Present Illness: LEATHA KRUGER is a 72-year-old right-handed male with past medical history of remote CVA with residual visual deficits, hypertension, diabetes mellitus type 2 , and coronary artery disease admitted to [facility] on 01/23/2018 after presenting with right-sided weakness, facial droop, and slurred speech after being found by a neighbor. The last known well time was about 48 hours prior to admission. The patient was found to have increased tone on the right and expressive and receptive aphasia as well as a blood pressure of 240/113. CT head demonstrated atrophy and chronic small vessel ischemic changes with tiny likely old bilateral lacunar infarcts. MRI of the brain demonstrated an acute left MCA distribution infarct with other changes consistent with atrophy and chronic small vessel disease. Further stroke workup demonstrated no hemodynamically significant stenosis on carotid duplex. Echocardiogram is pending or has not been ordered. Laboratory studies demonstrate hemoglobin A1c of 5.2%, total cholesterol of 193, and LDL of 86. The patient was also found to have mild acute kidney injury, for which he is being treated with IV fluids. Apparently, the patient has been noncompliant with his medication regimen at home as he presented with multiple full bottles of medications. He has been treated with aspirin 81 mg daily and atorvastatin 80 mg nightly for secondary stroke prophylaxis in addition to multiple antihypertensive medications. The patient was evaluated by speech therapy and is currently recommended a mechanical soft solids with nectar thick liquids diet, and the patient's daughter, who is a speech therapist at [facility], is considering PEG tube placement as recommended by speech therapy. Physical medicine and rehabilitation consultation was requested to evaluate the patient for admission to acute inpatient rehabilitation. Today, the patient was seen and examined in his room with his nurse at bedside. The patient has significant expressive greater than receptive aphasia, but he does follow about 50% of verbal commands. Past Medical History Cardiac Medical History: Reports: Myocardial Infarction Endocrine Medical History: Reports: Diabetes Mellitus Type 2 GI Medical History: Reports: Gastroesophageal Reflux Disease Psychiatric Medical History: Denies: Depression Past Surgical History Past Surgical History: Unknown/unclear as the patient is unable to provide history. Social History Lives with: Alone Smoking Status: Current Every Day Smoker Past Social History Note: Leatha Kruger lives alone in a 1 level home with 2 steps to enter and 0 steps to the bedroom and bathroom. According to the H&P, the patient is a current every day smoker. His daughter has plans for the patient to move to [facility] after rehabilitation. Prior Functional Status: Active and independent with mobility and all ADLs. Ambulates without an assist device. The patient did not drive due to visual deficits. Current Functional Status: Per therapy notes, the patient currently requires minimum assistance of 2 people for bed mobility, moderate assistance of 2 people for transfers, moderate assistance of 2 people for regulation of 20 feet with a rolling walker, and dependent assistance for activities of daily living. Family History Unable to obtain from the patient. - Advance Directive Resuscitation Status: Full Code Family History Family History: Other - Not obtainable. Parental Family History Reviewed: No - Unable to obtain from patient due to aphasia. Children Family History Reviewed: NA Sibling(s) Family History Reviewed.: NA Medication/Allergy Home Medications: Amlodipine Besylate [Norvasc 10 mg Tablet] 1 tab PO DAILY 01/24/18 Carvedilol 25 mg PO DAILY 01/24/18 Glimepiride 4 mg OD DAILY 01/24/18 Ramipril [Altace 10 mg Capsule] 10 mg PO DAILY 01/24/18 Tadalafil [Cialis] 1 tab PO DAILY 01/24/18 Allergies/Adverse Reactions: No Known Allergies Allergy (Unverified 01/24/18 01:33) Review of Systems Review of Systems: A reliable review of systems is unable to be obtained from the patient due to receptive and expressive aphasia. Physical Exam Vital Signs: Temp Pulse Resp BP Pulse Ox 97.6 F 57 L 18 198/82 H 99 01/26/18 08:13 01/26/18 08:13 01/26/18 08:13 01/26/18 08:13 01/26/18 08:13 Intake & Output 01/25/18 01/26/18 01/27/18 06:59 06:59 06:59 Intake Total 1000 1458 Balance 1000 1458 Weight 72.5 kg 72.2 kg Exam: General: Awake and Alert. No acute distress. Resting comfortably in bed. Head: Normocephalic. Atraumatic. Eyes: Pupils equal and round. The left eye is briskly reactive to light and the right eye is sluggishly reactive to light; it appears that the patient may have a cataract in the right eye. EOMI. Sclera white. He does exhibit right- sided neglect. Ears: No drainage noted. Nose: Nares normal & without exudate. Oropharynx: Moist mucous membranes. Neck: Supple movements. Cardiovascular: Regular rate & rhythm. No murmurs, rubs, or gallops appreciated. Pulmonary: Lungs clear to auscultation bilaterally. No increased work of breathing. Gastrointestinal: Abdomen soft, non-tender, non-distended. Normoactive bowel sounds. Skin: Texture and turgor normal. Warm and dry. Psychiatric: Patient has significant expressive greater than receptive aphasia and is unable to consistently answer questions. He does follow about 50% of verbal commands. Extremities: No clubbing, cyanosis, or inflammatory changes. Neurological: Neurologic exam is limited due to the patient's poor command following. It appears that he has a right-sided facial droop and neglect. No Sue's. No Babinski. He does have increased tone on the right, upper extremity greater than lower extremity, but all joints can be ranged. Muscle Strength: He is unable to follow commands for manual muscle testing, but it appears that he has at least 4/5 strength of left upper and lower extremity muscle groups and 1/5 strength of muscle groups in the right upper and lower extremities. Results Laboratory Results: 01/25/18 08:25 01/26/18 04:29 01/26/18 04:29 Sodium 144.5 Potassium 3.6 Chloride 111 H Carbon Dioxide 27 Anion Gap 7 BUN 19 Creatinine 1.45 H Est GFR ( Amer) 58 L Est GFR (Non-Af Amer) 48 L Glucose 138 H Calcium 9.1 Impressions: Chest X-Ray 01/23/18 20:33 IMPRESSION: No active disease. Head CT 01/23/18 20:33 IMPRESSION: Atrophy and chronic small vessel ischemic changes with tiny likely all old bilateral lacunar infarcts but if there is high clinical concern for acute infarct, MRI could better evaluate. Head MRI 01/24/18 01:25 IMPRESSION: 1. Acute left MCA distribution infarct. 2. Other changes include atrophy and chronic small vessel disease. EVIDENCE OF ACUTE STROKE: NO. Carotid Doppler Study 01/25/18 00:00 IMPRESSION: NO HEMODYNAMICALLY SIGNIFICANT STENOSIS. Modified Barium Swallow 01/25/18 00:00 IMPRESSION: ASPIRATION SEEN WITH THIN BARIUM.PLEASE SEE SPEECH PATHOLOGIST REPORT FOR OTHER FINDINGS AND RECOMMENDATIONS. Assessment & Plan - Plan Summary Plan Summary: Assessment and Plan: 72-year-old male with left MCA CVA resulting in right hemiparesis, dysphagia, and aphasia. 1. Gait and ADL Dysfunction secondary to left MCA CVA - Continue PT and OT to maximize mobility, safety, endurance, and self-care. 2. Left MCA CVA resulting in right (dominant) hemiparesis, dysphagia, and aphasia Needs continued PT & OT & ASSEMBLER BONDING to maximize functional mobility, safety and self- care as well as communication needs & swallow function. Risk Factor Modification: - Hypertension: Dietary and activity modifications, avoid hypotension and hypertension - Glycemic Control: HgBA1c = 5.2%, continue dietary and activity modifications, SSI, avoid hyperglycemia and hypoglycemia - Lipids: LDL is 86, continue dietary and activity modifications, continue statin - Smoking: The patient does smoke daily and will need to quit. - Alcohol: Able to assess the patient's amount of alcohol consumption. - Antiplatelet: Continue aspirin 81 mg daily. The patient was previously noncompliant with his medications. - Cardioembolic Event: Echocardiogram has not been resulted. It is unclear as to whether this is pending or simply not ordered. Consider ordering echocardiogram. - Vascular: No evidence of hemodynamically significant stenosis on carotid duplex. Dysphagia: - Bedside swallow evaluation and modified barium swallow study completed. - Discussed with speech therapist on the floor. Continue mechanical soft solids with nectar thick liquids diet. Consider downgraded to pured solids with nectar thick liquids due to evidence of retention but not aspiration. The patient's daughter is considering placement of a PEG tube. - Aspiration precautions, dysphagia diet, ASSEMBLER BONDING following. VTE Prophylaxis: - Continue SQ heparin. Risk of Shoulder Subluxation: - Educate patient and family on positioning. - Lap tray, if needed. Risk of Spasticity: - Continue ROM, positioning. - The patient has increased tone on the right, upper extremity greater than lower extremity. Consider starting baclofen 10 mg nightly and titrating up to 10 mg 3 times daily if no adverse side effects noted (mainly oversedation). Risk of Contractures: - Continue ROM, positioning. - Recommend right lower extremity IA AFO: 4 hours on/4 hours off while in bed. (Ordered) Risk of Constipation: - Continue dietary modifications and encourage fluid intake. - Bowel protocol: Colace 100 mg twice daily, MiraLAX 1 packet daily, and Dulcolax suppository daily as needed for constipation. Risk of Neurogenic Bladder/UTI: - Monitor for retention, incontinence, UTI. - Have patient attempt to void every 3 hours. Encourage patient to be upright to void and to double void. Perform POST VOID residual bladder scan at least once each shift. Record amount voided and post void residual amount. Perform intermittent catheterization if more than 250 ml post void residual urine. Risk of Skin Breakdown: - Frequent turning/position changes. - Optimize nutritional status. 3. Hypertension - Continue multiple antihypertensive medications and management per hospitalist medicine 4. Acute kidney injury - Continue IV fluids and management per hospitalist medicine 5. Disposition - Based on the patient's diagnosis, medical co-morbidities, and current functional status, he is a good candidate for acute inpatient rehabilitation as he would benefit from 3 hours per day of intensive therapies in at least 2 disciplines under the close medical supervision of a physician. The patient is expected to make significant gains in a relatively short period of time to the point that he can safely be discharged home with supervision and assistance from family. Transfer to acute inpatient rehabilitation is contingent upon medical stability, the patient's continued tolerance for therapies, and bed availability. The patient's daughter prefers that the patient be transferred to acute inpatient rehabilitation at [facility], where she works. This case was discussed with the patient's acute care therapists and nurse on the floor. Thank you for allowing us to participate in the care of this patient. Please call with any questions. A total of 75 minutes was spent on [id number] communication with the patient and coordination of care.
[2018-01-26] MEDS: ASPIRIN 81 MG TABLET, ENT COATED PO SCH (11:25)
[2018-01-26] MEDS: HYDRALAZINE HCL 25 MG TABLET PO SCH ×3 (11:28→21:29)
--- NOTE | 2018-01-26 20:05 | XCELERA REPORT ---
[address] [address] Transthoracic Echocardiogram Report Name: LEATHA JIMENEZ Age: 72 yrs Gender: Male : 1945 Patient Status: Inpatient Patient Location: [address] [place], [place] [id number] Study Date: 01/26/2018 05:35 PM Height: 72 in Weight: 159 lb BSA: 1.9 m2 Procedure: A complete two-dimensional transthoracic echocardiogram was performed (2D, M-mode, spectral and color flow Doppler). The study was technically adequate with some images being suboptimal in quality. Reason For Study: CVA Ordering Physician: YUMIKO JURADO Performed By: Celine Harvey Interpretation Summary The left ventricular ejection fraction is normal. Doppler measurements suggest pseudonormalized left ventricular relaxation, which is associated with grade II/IV or mild to moderate diastolic dysfunction The left ventricle is grossly normal size. There is distal anterior wall mild hypokinesis The right ventricle is grossly normal size. The right ventricular systolic function is normal. The left atrial size is normal. The right atrium is normal in size There is a trace amount of mitral regurgitation There is no mitral valve stenosis. No aortic regurgitation is present. There is no aortic valve stenosis There is no tricuspid stenosis. No tricuspid regurgitation. The aortic root is not well visualized but is probably normal size. The inferior vena cava was not well visualized Minimal pericardial effusion. No definite cardiac source of CVA/TIA noted on this particular trans-thoracic study. Consider REG if clinically indicated. May consider mobile cardiac telemetry monitoring (MCT) for ruling out transient AFIB. MMode/2D Measurements & Calculations RVDd: 2.1 cm LVIDd: 4.5 cm FS: 37.8 % Ao root diam: 3.1 cm IVSd: 0.98 cm LVIDs: 2.8 cm EDV(Teich): 92.8 ml Ao root area: 7.6 cm2 LVPWd: 0.87 cm ESV(Teich): 29.7 ml LA dimension: 3.1 cm EF(Teich): 68.0 % Doppler Measurements & Calculations MV E max baron: MV P1/2t max baron: Ao V2 max: LV V1 max P.3 cm/sec 69.4 cm/sec 159.3 cm/sec 2.9 mmHg MV A max baron: MV P1/2t: 61.4 msec Ao max PG: LV V1 max: 89.8 cm/sec MVA(P1/2t): 3.6 cm2 10.1 mmHg 85.4 cm/sec MV E/A: 0.56 MV dec slope: 331.1 cm/sec2 MV dec time: 0.31 sec TV V2 max: PA V2 max: TR max baron: MV P1/2t-pr_phl: 109.9 cm/sec 82.3 cm/sec 163.5 cm/sec 61.4 msec TV max PG: PA max P.8 mmHg TR max P.8 mmHg 10.7 mmHg Left Ventricle The left ventricle is grossly normal size. The left ventricular ejection fraction is normal. Doppler measurements suggest pseudonormalized left ventricular relaxation, which is associated with grade II/IV or mild to moderate diastolic dysfunction. There is distal anterior wall mild hypokinesis. Right Ventricle The right ventricle is grossly normal size. There is normal right ventricular wall thickness. The right ventricular systolic function is normal. Atria The right atrium is normal in size. The left atrial size is normal. Interarterial septum not well visualized and not well dopplered. Cannot comment on ASD/PFO presence. Mitral Valve The mitral valve is grossly normal. There is no mitral valve stenosis. There is a trace amount of mitral regurgitation. Aortic Valve The aortic valve is mildly calcified. There is no aortic valve stenosis. No aortic regurgitation is present. Tricuspid Valve The tricuspid valve is not well visualized, but is grossly normal. There is no tricuspid stenosis. No tricuspid regurgitation. Pulmonic Valve The pulmonic valve is not well visualized. Great Vessels The aortic root is not well visualized but is probably normal size. The inferior vena cava was not well visualized. Effusions Minimal pericardial effusion. Incidental Findings No definite cardiac source of CVA/TIA noted on this particular trans-thoracic study. Consider REG if clinically indicated. May consider mobile cardiac telemetry monitoring (MCT) for ruling out transient AFIB. : YUMIKO JURADO > Abbey Correa
[2018-01-26] MEDS: ATORVASTATIN CALCIUM 80 MG TABLET PO SCH (21:29)
[2018-01-27] MEDS: HYDRALAZINE HCL INJ/PF 20 MG/1 ML SDV IV PRN ×3 (04:02→21:06)
[2018-01-27 05:44] LABS: ALANINE AMINOTRANSFERASE 23 U/L (21-72); ALBUMIN 3.6 g/dL (3.5-5.0); ALKALINE PHOSPHATASE 70 U/L (38-126); ANION GAP 8 (5-19); ASPARTATE AMINO TRANSFERASE 37 U/L (17-59); BILIRUBIN,DIRECT 0.5 mg/dL (0.0-0.4); BILIRUBIN,TOTAL 1.2 mg/dL (0.2-1.3); BLOOD UREA NITROGEN 16 mg/dL (7-20); CALCIUM 9.4 mg/dL (8.4-10.2); CARBON DIOXIDE 26 mmol/L (22-30); CHLORIDE 110 mmol/L (98-107); GLUCOSE 112 mg/dL (75-110); POTASSIUM 3.9 mmol/L (3.6-5.0); TOTAL PROTEIN 7.4 g/dL (6.3-8.2)
[2018-01-27] MEDS: HYDRALAZINE HCL 25 MG TABLET PO SCH (05:49)
[2018-01-27] MEDS: HEPARIN SOD (PORCINE) 5,000 UNIT/ML 1 ML SYRINGE SUBCUT SCH ×3 (06:19→21:06)
[2018-01-27 06:26] LABS: ABSOLUTE BASOPHILS # (AUTO) 0.1 10^3/uL (0.0-0.2); ABSOLUTE EOSINOPHILS # (AUTO) 0.1 10^3/uL (0.0-0.6); ABSOLUTE LYMPHOCYTES (AUTO) 1.6 10^3/uL (0.5-4.7); ABSOLUTE MONOCYTES (AUTO) 0.6 10^3/uL (0.1-1.4); ABSOLUTE NEUT (AUTO) 2.9 10^3/uL (1.7-8.2); EOSINOPHILS % (AUTO) 2.1 % (0-6); HEMATOCRIT 39.2 % (37.9-51.0); HEMOGLOBIN 13.5 g/dL (13.5-17.0); LYMPHOCYTES % (AUTO) 30.3 % (13-45); MEAN CORPUSCULAR HEMOGLOBIN 30.9 pg (27.0-33.4); MEAN CORPUSCULAR HGB CONC 34.5 g/dL (32.0-36.0); MEAN CORPUSCULAR VOLUME 90 fl (80-97); MONOCYTES % (AUTO) 11.9 % (3-13); PLATELET COUNT 244 10^3/uL (150-450); RED BLOOD COUNT 4.37 10^6/uL (4.35-5.55); SEGMENTED NEUTROPHILS % (AUTO) 54.7 % (42-78); TOTAL CELLS COUNTED % (AUTO) 100 %; WHITE BLOOD COUNT 5.4 10^3/uL (4.0-10.5)
--- NOTE | 2018-01-27 09:29 | RADIOLOGY REPORT (SQ) ---
EXAM DESCRIPTION: U/S RETROPERITON (RENAL/AORTA) COMPLETED DATE/TIME: 01/27/2018 8:31 am REASON FOR STUDY: VIKKI COMPARISON: None. TECHNIQUE: Dynamic and static grayscale images acquired of the kidneys and bladder and recorded on P ACS. Additional selected color Doppler and spectral images recorded. LIMITATIONS: None. FINDINGS: RIGHT KIDNEY: Right kidney is 8.2 cm in length with very mild cortical thinning and increa sed echogenicity. No cysts, stones, masses, or hydronephrosis. LEFT KIDNEY: Left kidney is 9.4 cm in length with very mild cortical thinning and increased echogeni city. 6 cm cyst left lower pole kidney. No left renal stones, masses, or hydronephrosis. BLADDER: Bladder is incompletely distended. Prostate is 5 x 5 x 4 cm in size OTHER FINDINGS: No other significant finding. IMPRESSION: Mild bilateral renal cortical thinning and increased echogenicity No hydronephrosis. TECHNICAL DOCUMENTATION: JOB ID: [id number] [employer]- All Rights Reserved Reading location - IP/workstation name: [email or web address]
[2018-01-27] MEDS: CARVEDILOL 6.25 MG TABLET PO SCH (10:14)
[2018-01-27] MEDS: AMLODIPINE BESYLATE 10 MG TABLET PO SCH (10:14)
[2018-01-27] MEDS: RAMIPRIL 10 MG CAPSULE PO SCH (10:14)
[2018-01-27] MEDS: ASPIRIN 81 MG TABLET, ENT COATED PO SCH (10:15)
--- NOTE | 2018-01-27 13:10 | PDOC PROGRESS REPORT ---
Subjective Progress Note for:: 01/27/18 Subjective:: 72-year-old male past medical history of CVA, hypertension, diabetes and CAD. Patient was admitted on 01/24/2018 complaining of right upper extremity weakness right facial droop slurred speech. It was noted that he had mild expressive and receptive aphasia in ED. No TPA candidate. MRI on 01/24/2018 showed acute left MCA distribution infarct. Status post modified barium swallow. Failed swallow eval. Recommendation is to take nectar and possibly an alternative route of p.o. intake due to high risk of aspiration. Patient's daughter who is also a speech therapist has been updated about the need for possible PEG tube placement. Patient and family to decide if they want to undergo a PEG tube placement. No acute events overnight. Patient has receptive and expressive aphasia takes him a while to answer questions, however follows commands albeit slowly. Denies any fever, chills, nausea, vomiting, chest pain, shortness of breath, diarrhea, constipation or any urinary symptoms. Reason For Visit: CVA HTN EMERGENCY Physical Exam Vital Signs: Temp Pulse Resp BP Pulse Ox 98.9 F 67 16 174/70 H 99 01/27/18 11:53 01/27/18 11:53 01/27/18 11:53 01/27/18 11:53 01/27/18 11:53 Intake & Output 01/26/18 01/27/18 01/28/18 06:59 06:59 06:59 Intake Total 1458 819 100 Output Total 0 Balance 1458 819 100 Weight 72.2 kg 73.7 kg General appearance: PRESENT: no acute distress Respiratory exam: PRESENT: clear to auscultation doug. ABSENT: rales, rhonchi, wheezes Cardiovascular exam: PRESENT: RRR. ABSENT: diastolic murmur, rubs, systolic murmur Pulses: PRESENT: normal dorsalis pedis pul GI/Abdominal exam: PRESENT: normal bowel sounds, soft. ABSENT: distended, guarding, mass, organolmegaly, rebound, tenderness Extremities exam: PRESENT: full ROM. ABSENT: calf tenderness, clubbing, pedal edema Neurological exam: PRESENT: alert, awake, oriented to person, oriented to place , CN II-XII grossly intact - Right-sided facial droop. Right upper extremity strength 2 /5., aphasic Results Laboratory Results: 01/27/18 06:16 01/27/18 04:41 01/27/18 01/27/18 01/27/18 04:41 04:41 06:16 WBC Cancelled 5.4 RBC Cancelled 4.37 Hgb Cancelled 13.5 Hct Cancelled 39.2 MCV Cancelled 90 MCH Cancelled 30.9 MCHC Cancelled 34.5 RDW Cancelled 14.0 Plt Count Cancelled 244 Seg Neutrophils % Cancelled 54.7 Lymphocytes % Cancelled 30.3 Monocytes % Cancelled 11.9 Eosinophils % Cancelled 2.1 Basophils % Cancelled 1.0 Absolute Neutrophils Cancelled 2.9 Absolute Lymphocytes Cancelled 1.6 Absolute Monocytes Cancelled 0.6 Absolute Eosinophils Cancelled 0.1 Absolute Basophils Cancelled 0.1 Sodium 144.0 Potassium 3.9 Chloride 110 H Carbon Dioxide 26 Anion Gap 8 BUN 16 Creatinine 1.38 H Est GFR ( Amer) > 60 Est GFR (Non-Af Amer) 51 L Glucose 112 H Calcium 9.4 Total Bilirubin 1.2 AST 37 ALT 23 Alkaline Phosphatase 70 Total Protein 7.4 Albumin 3.6 Impressions: Chest X-Ray 01/23/18 20:33 IMPRESSION: No active disease. Head CT 01/23/18 20:33 IMPRESSION: Atrophy and chronic small vessel ischemic changes with tiny likely all old bilateral lacunar infarcts but if there is high clinical concern for acute infarct, MRI could better evaluate. Head MRI 01/24/18 01:25 IMPRESSION: 1. Acute left MCA distribution infarct. 2. Other changes include atrophy and chronic small vessel disease. EVIDENCE OF ACUTE STROKE: NO. Carotid Doppler Study 01/25/18 00:00 IMPRESSION: NO HEMODYNAMICALLY SIGNIFICANT STENOSIS. Modified Barium Swallow 01/25/18 00:00 IMPRESSION: ASPIRATION SEEN WITH THIN BARIUM.PLEASE SEE SPEECH PATHOLOGIST REPORT FOR OTHER FINDINGS AND RECOMMENDATIONS. Renal Ultrasound 01/26/18 00:00 IMPRESSION: Mild bilateral renal cortical thinning and increased echogenicity No hydronephrosis. Assessment & Plan - Diagnosis (1) Acute CVA (cerebrovascular accident) Is this a current diagnosis for this admission?: Yes Plan: Left MCA ischemic infarct as per MRI head. 2D echo on 01/26/2018 read as normal. Patient has right facial droop and right upper extremity weakness. Not a TPA candidate. Continue aspirin and statin. Continue ST PT OT. Patient failed swallow eval possible needs a PEG tube placement. Patient's daughter who is a speech therapist is aware of the situation. Pending decision on PEG tube placement. Patient lives alone the daughter prefers patient to be transferred to rehab at [facility] where she works. (2) CAD (coronary artery disease) Is this a current diagnosis for this admission?: Yes Plan: No active chest pain. Stable. Continue aspirin, statin, JUANJOSE and beta- blockers. 2D echo on 01/26/2018 read as normal. Follow-up with cardiology as outpatient. Follow-up with PCP. (3) Hypertensive emergency Is this a current diagnosis for this admission?: Yes Plan: Pressure still in high 170s. Increase hydralazine to 50 mg every 8 hours. Continue labetalol IV as needed. Currently on amlodipine 10 mg, Coreg 25 twice daily, ramipril 10 mg daily Continue monitoring blood pressure and adjust meds as needed. (4) Acute renal failure Is this a current diagnosis for this admission?: Yes Plan: Possibly secondary to chronic uncontrolled hypertension and diabetes. Creatinine and electrolytes are stable. Renal ultrasound with mild cortical atrophy and increased echogenicity. Continue to manage hypertension and diabetes. Avoid nephrotoxic medications. Outpatient nephrology follow-up. (5) Diabetes Is this a current diagnosis for this admission?: Yes Plan: A1c 5.2. Patient had one episode of hypoglycemia. Currently on D5 normal saline. Continue Accu-Chek. Hold insulin. Takes glimepiride at home. (6) Dyslipidemia Is this a current diagnosis for this admission?: Yes Plan: ASCVD >70%. Continue high intensity statins. Lifestyle and diet modification.
[2018-01-27] MEDS ORDERED: HALOPERIDOL LACTATE INJ 5 MG/1 ML VIAL IM PRN (14:39)
[2018-01-27] MEDS: ATORVASTATIN CALCIUM 80 MG TABLET PO SCH (21:06)
[2018-01-28 05:10] LABS: ABSOLUTE EOSINOPHILS # (AUTO) 0.1 10^3/uL (0.0-0.6); ABSOLUTE LYMPHOCYTES (AUTO) 1.2 10^3/uL (0.5-4.7); ABSOLUTE MONOCYTES (AUTO) 0.5 10^3/uL (0.1-1.4); ABSOLUTE NEUT (AUTO) 1.9 10^3/uL (1.7-8.2); BASOPHILS % (AUTO) 1.2 % (0-2); HEMATOCRIT 36.5 % (37.9-51.0); HEMOGLOBIN 12.8 g/dL (13.5-17.0); LYMPHOCYTES % (AUTO) 32.1 % (13-45); MEAN CORPUSCULAR HEMOGLOBIN 30.9 pg (27.0-33.4); MEAN CORPUSCULAR HGB CONC 35.1 g/dL (32.0-36.0); MEAN CORPUSCULAR VOLUME 88 fl (80-97); MONOCYTES % (AUTO) 13.5 % (3-13); PLATELET COUNT 241 10^3/uL (150-450); RED BLOOD COUNT 4.15 10^6/uL (4.35-5.55); SEGMENTED NEUTROPHILS % (AUTO) 51.2 % (42-78); TOTAL CELLS COUNTED % (AUTO) 100 %; WHITE BLOOD COUNT 3.8 10^3/uL (4.0-10.5)
[2018-01-28] MEDS: HEPARIN SOD (PORCINE) 5,000 UNIT/ML 1 ML SYRINGE SUBCUT SCH ×3 (05:11→22:39)
[2018-01-28 05:36] LABS: ALANINE AMINOTRANSFERASE 27 U/L (21-72); ALBUMIN 3.2 g/dL (3.5-5.0); ALKALINE PHOSPHATASE 67 U/L (38-126); ANION GAP 7 (5-19); ASPARTATE AMINO TRANSFERASE 30 U/L (17-59); BILIRUBIN,DIRECT 0.4 mg/dL (0.0-0.4); BILIRUBIN,TOTAL 1.1 mg/dL (0.2-1.3); BLOOD UREA NITROGEN 20 mg/dL (7-20); CALCIUM 9.4 mg/dL (8.4-10.2); CARBON DIOXIDE 26 mmol/L (22-30); CHLORIDE 110 mmol/L (98-107); GLUCOSE 102 mg/dL (75-110); POTASSIUM 3.7 mmol/L (3.6-5.0); SODIUM 142.7 mmol/L (137-145); TOTAL PROTEIN 6.7 g/dL (6.3-8.2)
[2018-01-28] MEDS ORDERED: FLUMAZENIL INJ 0.5 MG/5 ML VIAL ONE (08:09)
[2018-01-28] MEDS ORDERED: DIPHENHYDRAMINE HCL 50 MG/ML VIAL ONE (08:09)
[2018-01-28] MEDS ORDERED: NALOXONE HCL INJ/PF 0.4 MG/1 ML SDV ONE (08:09)
[2018-01-28] MEDS ORDERED: FENTANYL CITRATE INJ/PF 100 MCG/2 ML AMPUL ONE (08:09)
[2018-01-28] MEDS ORDERED: ONDANSETRON HCL INJ/PF 4 MG/2 ML SDV ONE (08:09)
[2018-01-28] MEDS ORDERED: EPINEPHRINE INJ 1 MG/10 ML DISP.SYRIN ONE (08:10)
[2018-01-28] MEDS ORDERED: GLUCAGON,HUMAN RECOMB 1 MG INJ ONE (08:10)
[2018-01-28] MEDS: NORMAL SALINE 1000 ML 1,000 ML IV PRN ×2 (08:21→18:00)
[2018-01-28] MEDS: MIDAZOLAM 2 MG/2 ML INJ ONE ×3 (08:58→09:06)
--- NOTE | 2018-01-28 08:58 | PDOC PROGRESS REPORT ---
Subjective Progress Note for:: 01/28/18 Subjective:: 72-year-old male past medical history of CVA, hypertension, diabetes and CAD. Patient was admitted on 01/24/2018 complaining of right upper extremity weakness right facial droop slurred speech. It was noted that he had mild expressive and receptive aphasia in ED. No TPA candidate. MRI on 01/24/2018 showed acute left MCA distribution infarct. Status post modified barium swallow. Failed swallow eval. Recommendation is to take nectar and possibly an alternative route of p.o. intake due to high risk of aspiration. Patient's daughter who is also a speech therapist has been updated about the need for possible PEG tube placement. She has decided to undergo PEG tube placement for supplemental diet. No acute events overnight. Patient has receptive and expressive aphasia which is improving. Upon my encounter today patient was asleep and I woke him up. Patient seem to be very pleasant and cooperative with physical examination. Patient is n.p.o. for PEG tube placement today. Denies any fever, chills, nausea, vomiting, chest pain, shortness of breath, diarrhea, constipation or any urinary symptoms. Reason For Visit: CVA HTN EMERGENCY Physical Exam Vital Signs: Temp Pulse Resp BP Pulse Ox 98.0 F 56 L 16 156/59 H 96 01/28/18 08:13 01/28/18 08:13 01/28/18 08:13 01/28/18 08:13 01/28/18 08:13 Intake & Output 01/27/18 01/28/18 01/29/18 06:59 06:59 06:59 Intake Total 819 100 Output Total 100 Balance 819 0 Weight 73.7 kg 75 kg General appearance: PRESENT: no acute distress, well-developed, well-nourished Head exam: PRESENT: atraumatic, normocephalic Respiratory exam: PRESENT: clear to auscultation doug. ABSENT: rales, rhonchi, wheezes Cardiovascular exam: PRESENT: RRR. ABSENT: diastolic murmur, rubs, systolic murmur Pulses: PRESENT: normal dorsalis pedis pul Vascular exam: PRESENT: normal capillary refill GI/Abdominal exam: PRESENT: normal bowel sounds, soft. ABSENT: distended, guarding, mass, organolmegaly, rebound, tenderness Rectal exam: PRESENT: deferred Extremities exam: ABSENT: calf tenderness, clubbing, pedal edema Neurological exam: PRESENT: alert, awake, oriented to person, oriented to time, oriented to situation, aphasic, other - Right facial droop improving. Right upper extremity strength 2/5. Patient has right-sided hemineglect with receptive and expressive aphasia which has been improving.. ABSENT: motor sensory deficit Psychiatric exam: PRESENT: appropriate affect, normal mood. ABSENT: homicidal ideation, suicidal ideation Skin exam: PRESENT: dry, intact, warm. ABSENT: cyanosis, rash Results Laboratory Results: 01/28/18 04:34 01/28/18 04:34 01/28/18 01/28/18 04:34 04:34 WBC 3.8 L RBC 4.15 L Hgb 12.8 L Hct 36.5 L MCV 88 MCH 30.9 MCHC 35.1 RDW 14.0 Plt Count 241 Seg Neutrophils % 51.2 Lymphocytes % 32.1 Monocytes % 13.5 H Eosinophils % 2.0 Basophils % 1.2 Absolute Neutrophils 1.9 Absolute Lymphocytes 1.2 Absolute Monocytes 0.5 Absolute Eosinophils 0.1 Absolute Basophils 0.0 Sodium 142.7 Potassium 3.7 Chloride 110 H Carbon Dioxide 26 Anion Gap 7 BUN 20 Creatinine 1.70 H Est GFR ( Amer) 48 L Est GFR (Non-Af Amer) 40 L Glucose 102 Calcium 9.4 Total Bilirubin 1.1 AST 30 ALT 27 Alkaline Phosphatase 67 Total Protein 6.7 Albumin 3.2 L Impressions: Chest X-Ray 01/23/18 20:33 IMPRESSION: No active disease. Head CT 01/23/18 20:33 IMPRESSION: Atrophy and chronic small vessel ischemic changes with tiny likely all old bilateral lacunar infarcts but if there is high clinical concern for acute infarct, MRI could better evaluate. Head MRI 01/24/18 01:25 IMPRESSION: 1. Acute left MCA distribution infarct. 2. Other changes include atrophy and chronic small vessel disease. EVIDENCE OF ACUTE STROKE: NO. Carotid Doppler Study 01/25/18 00:00 IMPRESSION: NO HEMODYNAMICALLY SIGNIFICANT STENOSIS. Modified Barium Swallow 01/25/18 00:00 IMPRESSION: ASPIRATION SEEN WITH THIN BARIUM.PLEASE SEE SPEECH PATHOLOGIST REPORT FOR OTHER FINDINGS AND RECOMMENDATIONS. Renal Ultrasound 01/26/18 00:00 IMPRESSION: Mild bilateral renal cortical thinning and increased echogenicity No hydronephrosis. Assessment & Plan - Diagnosis (1) Acute CVA (cerebrovascular accident) Is this a current diagnosis for this admission?: Yes Plan: Left MCA ischemic infarct as per MRI head. 2D echo on 01/26/2018 read as normal. Patient has right facial droop and right upper extremity weakness with right-sided neglect. Continue aspirin and statin. Continue ST PT OT. Patient failed swallow eval possible needs a PEG tube placement. N.p.o. for PEG tube placement today. Once patient is ready to be discharged we will arrange for him to be transferred to [facility] as the daughter who lives here prefers him to be transferred there. (2) CAD (coronary artery disease) Is this a current diagnosis for this admission?: Yes Plan: No active chest pain. Stable. Continue aspirin, statin, JUANJOSE and beta- blockers. 2D echo on 01/26/2018 read as normal. Follow-up with cardiology as outpatient. Follow-up with PCP. (3) Hypertensive emergency Is this a current diagnosis for this admission?: Yes Plan: Improving. Increase hydralazine to 75mg every 8 hours. Continue labetalol IV as needed. Currently on amlodipine 10 mg, Coreg 12.5 twice daily, ramipril 10 mg daily Continue monitoring blood pressure and adjust meds as needed. (4) Acute renal failure Is this a current diagnosis for this admission?: Yes Plan: Possibly secondary to chronic uncontrolled hypertension and diabetes. Creatinine trending up. Start maintenance IV fluid. Renal ultrasound with mild cortical atrophy and increased echogenicity. Continue to manage hypertension and diabetes. Avoid nephrotoxic medications. CMP for tomorrow. Outpatient nephrology follow-up. (5) Diabetes Is this a current diagnosis for this admission?: Yes Plan: A1c 5.2. Patient had one episode of hypoglycemia. Continue Accu-Chek. Hold insulin. Takes glimepiride at home. (6) Dyslipidemia Is this a current diagnosis for this admission?: Yes Plan: ASCVD >70%. Continue high intensity statins. Lifestyle and diet modification.
--- NOTE | 2018-01-28 09:33 | Operative Report ---
Operative Report DATE OF SURGERY: 01/28/18 PREOPERATIVE DIAGNOSIS: 1. Status post CVA. 2. Malnutrition POSTOPERATIVE DIAGNOSIS: Same OPERATION: 1. Esophagogastroduodenoscopy. 2. Placement of 24 Setswana Endo I PEG tube SURGEON: KAREN BOYD STREET SWEEPER: REX BUCKNER ANESTHESIA: Moderate Sedation TISSUE REMOVED OR ALTERED: None COMPLICATIONS: None ESTIMATED BLOOD LOSS: Scant INTRAOPERATIVE FINDINGS: See below PROCEDURE: The patient was taken from the floor to the endoscopy suite on the fifth floor where mouthpiece inserted conscious sedation induced, and patient placed in the semirecumbent position Surgical plan surgical timeout were conducted The flexible adult upper endoscope was advanced to the hypopharynx uneventfully down the esophagus through the stomach into the duodenum first and second portions. This is well tolerated by the patient. There was no evidence of tumor, stricture, bleeding, or polyp. No evidence of retained gastric contents. The stomach was insufflated, suitable site for placement of the PEG tube was chosen. The certified ophthalmic surgical assistant prep the anterior abdominal wall left upper quadrant anesthetized the skin with 1% plain lidocaine, made a karine in the skin with the 11 blade, and the Jelco 18-gauge was inserted into the anterior abdominal wall, and then into the gastric lumen. Needle removed, and green wire threaded through the Jelco. The wire was grasped by the endoscopist with the snare, and the snare wire and scope brought out of the patient's oropharynx. The 24 Setswana Endo I feeding tube was threaded over the wire and the wire and feeding tube brought up through the anterior abdominal wall. Wire removed bolster to the feeding tube applied feeding tube trimmed of redundant tubing and secured with lamp adapter etc. Repeat upper endoscopy performed by the endoscopist uneventfully. Insufflation of the stomach revealed good positioning of the feeding tube. The skin was at approximately 3 cm from the bolster. We felt the tube was in satisfactory position. Scope was withdrawn after decompressing the stomach. Patient tolerated procedure well. Scope may be used immediately.
[2018-01-28] MEDS ORDERED: HYDRALAZINE HCL 50 MG TABLET PO SCH ×3 (10:00)
[2018-01-28] MEDS ORDERED: CARVEDILOL 12.5 MG TABLET PO SCH ×3 (10:00)
[2018-01-28] MEDS: ASPIRIN 81 MG TABLET, ENT COATED PO SCH (10:32)
[2018-01-28] MEDS: CARVEDILOL 12.5 MG TABLET PO SCH ×2 (10:32→22:39)
[2018-01-28] MEDS: HYDRALAZINE HCL 50 MG TABLET PO SCH (10:33)
[2018-01-28] MEDS: AMLODIPINE BESYLATE 10 MG TABLET PO SCH (10:33)
[2018-01-28] MEDS: RAMIPRIL 10 MG CAPSULE PO SCH (10:33)
[2018-01-28] MEDS: KETOROLAC TROMETHAMINE INJ/PF 30 MG/1 ML SDV IV PRN ×2 (12:27→22:39)
[2018-01-28] MEDS: ATORVASTATIN CALCIUM 80 MG TABLET PO SCH (22:38)
[2018-01-29 05:07] LABS: HEMATOCRIT 38.4 % (37.9-51.0); HEMOGLOBIN 13.3 g/dL (13.5-17.0); MEAN CORPUSCULAR HEMOGLOBIN 30.8 pg (27.0-33.4); MEAN CORPUSCULAR HGB CONC 34.6 g/dL (32.0-36.0); MEAN CORPUSCULAR VOLUME 89 fl (80-97); PLATELET COUNT 236 10^3/uL (150-450); RED BLOOD COUNT 4.31 10^6/uL (4.35-5.55)
[2018-01-29 05:22] LABS: WHITE BLOOD COUNT 9.1 10^3/uL (4.0-10.5)
[2018-01-29 05:26] LABS: ABSOLUTE LYMPHOCYTES# (MANUAL) 0.6 10^3/uL (0.5-4.7); ABSOLUTE MONOCYTES # (MANUAL) 0.3 10^3/uL (0.1-1.4); ABSOLUTE NEUTROPHILS# (MANUAL) 8.2 10^3/uL (1.7-8.2); BASOPHILS % (MANUAL) 0 % (0-2); EOSINOPHILS % (MANUAL) 0 % (0-6); LYMPHOCYTES % (MANUAL) 7 % (13-45); MONOCYTES % (MANUAL) 3 % (3-13); SEGMENTED NEUTROPHILS % (MAN) 69 % (42-78); TOTAL CELLS COUNTED 100
[2018-01-29 05:27] LABS: PLATELET COMMENT ADEQUATE; RBC MORPHOLOGY COMMENT NORMO-CYTIC/CHROMIC; TOXIC GRANULATION SLIGHT
[2018-01-29 05:30] LABS: BAND NEUTROPHILS % (MANUAL) 21 % (3-5)
[2018-01-29] MEDS: HEPARIN SOD (PORCINE) 5,000 UNIT/ML 1 ML SYRINGE SUBCUT SCH (05:31)
[2018-01-29 05:32] LABS: ALANINE AMINOTRANSFERASE 27 U/L (21-72); ALBUMIN 3.1 g/dL (3.5-5.0); ALKALINE PHOSPHATASE 62 U/L (38-126); ANION GAP 8 (5-19); ASPARTATE AMINO TRANSFERASE 31 U/L (17-59); BILIRUBIN,DIRECT 0.4 mg/dL (0.0-0.4); BILIRUBIN,TOTAL 1.2 mg/dL (0.2-1.3); BLOOD UREA NITROGEN 25 mg/dL (7-20); CARBON DIOXIDE 24 mmol/L (22-30); CHLORIDE 112 mmol/L (98-107); GLUCOSE 112 mg/dL (75-110); POTASSIUM 4.1 mmol/L (3.6-5.0); SODIUM 143.8 mmol/L (137-145); TOTAL PROTEIN 6.6 g/dL (6.3-8.2)
[2018-01-29] MEDS: NORMAL SALINE 1000 ML 1,000 ML IV PRN (06:50)
--- NOTE | 2018-01-29 07:27 | PDOC TRANSFER SUMMARY ---
General Admission Date/PCP: 01/24/18 01:24 Resuscitation Status: Full Code - Transfer Diagnosis (1) Acute CVA (cerebrovascular accident) Is this a current diagnosis for this admission?: Yes (2) CAD (coronary artery disease) Is this a current diagnosis for this admission?: Yes (3) Hypertensive emergency Is this a current diagnosis for this admission?: Yes (4) Acute renal failure Is this a current diagnosis for this admission?: Yes (5) Diabetes Is this a current diagnosis for this admission?: Yes (6) Dyslipidemia Is this a current diagnosis for this admission?: Yes - Transfer Medications Home Medications: Amlodipine Besylate [Norvasc 10 mg Tablet] 1 tab PO DAILY 01/24/18 Glimepiride 4 mg OD DAILY 01/24/18 Ramipril [Altace 10 mg Capsule] 10 mg PO DAILY 01/24/18 Tadalafil [Cialis] 1 tab PO DAILY 01/24/18 Transfer Medications: Current Medications Acetaminophen (Tylenol 325 Mg Tablet) 650 mg PO Q4HP PRN PRN Reason: Temp greater than 101F Stop: 02/23/18 01:23 Amlodipine Besylate (Norvasc 10 Mg Tablet) 10 mg PO DAILY [facility] Stop: 02/24/18 09:59 Last Admin: 01/28/18 10:33 Dose: 10 mg Aspirin (Ecotrin 81 Mg Ec Tablet) 81 mg PO DAILY [facility] Stop: 02/25/18 09:59 Last Admin: 01/28/18 10:32 Dose: 81 mg Atorvastatin Calcium (Lipitor 80 Mg Tablet) 80 mg PO QHS [facility] Stop: 02/23/18 21:59 Last Admin: 01/28/18 22:38 Dose: 80 mg Carvedilol (Coreg 12.5 Mg Tablet) 12.5 mg PO Q12 [facility] Stop: 02/27/18 09:59 Last Admin: 01/28/18 22:39 Dose: 12.5 mg Dextrose (Dextrose Inj 50% Syringe (25 Gm/50 Ml)) 12.5 gm IV PRN PRN; Protocol PRN Reason: FOR BG 50-69 IN ALERT PATIENT Stop: 02/23/18 01:23 Dextrose (Dextrose Inj 50% Syringe (25 Gm/50 Ml)) 25 gm IV PRN PRN; Protocol PRN Reason: See Label Comments Stop: 02/23/18 01:23 Docusate Sodium (Colace 100 Mg Capsule) 100 mg PO BIDP PRN PRN Reason: FOR CONSTIPATION Stop: 02/23/18 01:23 Glucagon (Glucagen Inj 1 Mg Vial) 1 mg SUBCUT PRN PRN; Protocol PRN Reason: Evaluate for BG < 70 Stop: 02/23/18 01:23 Last Admin: 01/24/18 12:17 Dose: 1 mg Glucose (Glutose 40% Gel 15 Gm Tube) 15 gm PO PRN PRN; Protocol PRN Reason: For BG 50-69 in Alert Patient Stop: 02/23/18 01:23 Glucose (Glutose 40% Gel 15 Gm Tube) 30 gm PO PRN PRN; Protocol PRN Reason: FOR BG < 50 IN ALERT PATIENT Stop: 02/23/18 01:23 Heparin Sodium (Porcine) (Heparin Inj 5,000 Units/Ml 1 Ml Syringe) 5,000 unit SUBCUT Q8 [facility] Stop: 02/23/18 05:59 Last Admin: 01/29/18 05:31 Dose: 5,000 unit Hydralazine HCl (Apresoline Inj/Pf 20 Mg/1 Ml Sdv) 10 mg IV Q6HP PRN PRN Reason: Sbp>160 Stop: 02/23/18 01:22 Last Admin: 01/27/18 21:06 Dose: 10 mg Hydralazine HCl (Apresoline 50 Mg Tablet) 75 mg PO DAILY [facility] Stop: 02/27/18 09:59 Last Admin: 01/28/18 10:33 Dose: 75 mg Sodium Chloride (Nacl 0.9% 1000 Ml Iv Soln) 1,000 mls @ 80 mls/hr IV CONTINUOUS PRN PRN Reason: THIS MED IS NOT "PRN" Stop: 02/27/18 07:52 Last Admin: 01/29/18 06:50 Dose: 80 mls/hr Ketorolac Tromethamine (Toradol Inj/Pf 30 Mg/1 Ml Sdv) 30 mg IV Q8HP PRN PRN Reason: PAIN Stop: 02/02/18 11:35 Last Admin: 01/28/18 22:39 Dose: 30 mg Labetalol HCl (Normodyne Inj 20 Mg/4 Ml Syringe) 20 mg IV Q10MP PRN PRN Reason: sbp>200 Stop: 02/23/18 01:23 Last Admin: 01/25/18 20:03 Dose: 20 mg Magnesium Hydroxide (Milk Of Magnesia 30 Ml Udcup) 30 ml PO HSP PRN PRN Reason: FOR CONSTIPATION Stop: 02/23/18 01:23 Ramipril (Altace 10 Mg Capsule) 10 mg PO DAILY [facility] Stop: 02/24/18 09:59 Last Admin: 01/28/18 10:33 Dose: 10 mg Sodium Chloride (Saline Flush 2.5 Ml Monoject Prefil Syrin) 2.5 ml IV Q8 [facility] Stop: 02/23/18 05:59 Last Admin: 01/29/18 05:32 Dose: 2.5 ml - Allergies Allergies/Adverse Reactions: No Known Allergies Allergy (Unverified 01/24/18 01:33) - Diet/Activity Discharge Diet: As Tolerated Hospital Course Hospital Course: Mr. Kruger is a 72 year old male with a past medical history of remote CVA without significant residual deficits, HTN, DM, CAD, was brought in with right arm weakness, right facial droop and slurring of speech. He did have mild receptive and expressive aphasia upon presentation. He was not a TPA candidate. He reportedly failed swallow evaluation in the ER. (1) Acute CVA (cerebrovascular accident) Left MCA ischemic infarct as per MRI head. 2D echo on 01/26/2018 read as normal. Recieved aspirin,statin, ST PT OT. Patient failed swallow eval, s/p PEG placement 01/29/2018. (2) CAD (coronary artery disease) No active chest pain. Stable. Continue aspirin, statin, JUANJOSE and beta- blockers. 2D echo on 01/26/2018 read as normal. Follow-up with cardiology as outpatient. Follow-up with PCP. (3) Hypertensive emergency Meds titrated, SBP around 130s - 140s. Hydralzine 75mg every 8 hours,amlodipine 10 mg, Coreg 12.5 twice daily, ramipril 10 mg daily (4) Acute renal failure Possibly secondary to chronic uncontrolled hypertension and diabetes. Creatinine trending downp. Renal ultrasound with mild cortical atrophy and increased echogenicity. Continue to manage hypertension and diabetes. Avoid nephrotoxic medications. CMP for tomorrow. Outpatient nephrology follow-up. (5) Diabetes A1c 5.2. Patient had one episode of hypoglycemia. Continue Accu-Chek, Takes glimepiride at home. (6) Dyslipidemia ASCVD >70%. Continue high intensity statins. Lifestyle and diet modification. Physical Exam Vital Signs: Temp Pulse Resp BP Pulse Ox 99.0 F 81 16 135/58 H 98 01/29/18 03:59 01/29/18 03:59 01/29/18 03:59 01/29/18 03:59 01/29/18 03:59 Intake & Output 01/28/18 01/29/18 01/30/18 06:59 06:59 06:59 Intake Total 100 2059 Output Total 100 Balance 0 2059 Weight 75 kg 75.3 kg General appearance: PRESENT: no acute distress Cardiovascular exam: PRESENT: RRR. ABSENT: diastolic murmur, rubs, systolic murmur Pulses: PRESENT: normal dorsalis pedis pul Vascular exam: PRESENT: normal capillary refill GI/Abdominal exam: PRESENT: normal bowel sounds, soft. ABSENT: distended, guarding, mass, organolmegaly, rebound, tenderness Extremities exam: ABSENT: calf tenderness, clubbing, pedal edema Neurological exam: PRESENT: alert, awake, oriented to person, oriented to time, CN II-XII grossly intact, aphasic, other - Rt Facial Droop, RUE strength 2/5. ABSENT: motor sensory deficit Skin exam: PRESENT: dry, intact, warm. ABSENT: cyanosis, rash Results Laboratory Results: 01/29/18 04:20 01/29/18 04:20 01/29/18 01/29/18 04:20 04:20 WBC 9.1 D RBC 4.31 L Hgb 13.3 L Hct 38.4 MCV 89 MCH 30.8 MCHC 34.6 RDW 14.0 Plt Count 236 Seg Neutrophils % Not Reportable Lymphocytes % Not Reportable Monocytes % Not Reportable Eosinophils % Not Reportable Basophils % Not Reportable Absolute Neutrophils Not Reportable Absolute Lymphocytes Not Reportable Absolute Monocytes Not Reportable Absolute Eosinophils Not Reportable Absolute Basophils Not Reportable Sodium 143.8 Potassium 4.1 Chloride 112 H Carbon Dioxide 24 Anion Gap 8 BUN 25 H Creatinine 1.55 H Est GFR ( Amer) 54 L Est GFR (Non-Af Amer) 45 L Glucose 112 H Calcium 9.0 Total Bilirubin 1.2 AST 31 ALT 27 Alkaline Phosphatase 62 Total Protein 6.6 Albumin 3.1 L Impressions: Chest X-Ray 01/23/18 20:33 IMPRESSION: No active disease. Head CT 01/23/18 20:33 IMPRESSION: Atrophy and chronic small vessel ischemic changes with tiny likely all old bilateral lacunar infarcts but if there is high clinical concern for acute infarct, MRI could better evaluate. Head MRI 01/24/18 01:25 IMPRESSION: 1. Acute left MCA distribution infarct. 2. Other changes include atrophy and chronic small vessel disease. EVIDENCE OF ACUTE STROKE: NO. Carotid Doppler Study 01/25/18 00:00 IMPRESSION: NO HEMODYNAMICALLY SIGNIFICANT STENOSIS. Modified Barium Swallow 01/25/18 00:00 IMPRESSION: ASPIRATION SEEN WITH THIN BARIUM.PLEASE SEE SPEECH PATHOLOGIST REPORT FOR OTHER FINDINGS AND RECOMMENDATIONS. Renal Ultrasound 01/26/18 00:00 IMPRESSION: Mild bilateral renal cortical thinning and increased echogenicity No hydronephrosis.
[2018-01-29 08:13] VITALS: BP 142/73
[2018-01-29] MEDS: CARVEDILOL 12.5 MG TABLET PO SCH (09:19)
[2018-01-29] MEDS: ASPIRIN 81 MG TABLET, ENT COATED PO SCH (09:19)
[2018-01-29] MEDS: AMLODIPINE BESYLATE 10 MG TABLET PO SCH (09:20)
[2018-01-29] MEDS: RAMIPRIL 10 MG CAPSULE PO SCH (09:20)
[2018-01-29] MEDS: HYDRALAZINE HCL 50 MG TABLET PO SCH (09:20)
--- NOTE | 2018-01-29 09:50 | PDOC PROGRESS REPORT ---
Subjective Progress Note for:: 01/29/18 Subjective:: no pains Reason For Visit: CVA HTN EMERGENCY Physical Exam Vital Signs: Temp Pulse Resp BP Pulse Ox 99.0 F 69 16 142/73 H 95 01/29/18 03:59 01/29/18 08:00 01/29/18 08:00 01/29/18 08:00 01/29/18 08:00 Intake & Output 01/28/18 01/29/18 01/30/18 06:59 06:59 06:59 Intake Total 100 2060 Output Total 100 Balance 0 2059 Weight 75 kg 75.3 kg Exam: PEG tube site looks good Tolerating tube feeds Results Laboratory Results: 01/29/18 04:20 01/29/18 04:20 01/29/18 01/29/18 04:20 04:20 WBC 9.1 D RBC 4.31 L Hgb 13.3 L Hct 38.4 MCV 89 MCH 30.8 MCHC 34.6 RDW 14.0 Plt Count 236 Seg Neutrophils % Not Reportable Lymphocytes % Not Reportable Monocytes % Not Reportable Eosinophils % Not Reportable Basophils % Not Reportable Absolute Neutrophils Not Reportable Absolute Lymphocytes Not Reportable Absolute Monocytes Not Reportable Absolute Eosinophils Not Reportable Absolute Basophils Not Reportable Sodium 143.8 Potassium 4.1 Chloride 112 H Carbon Dioxide 24 Anion Gap 8 BUN 25 H Creatinine 1.55 H Est GFR ( Amer) 54 L Est GFR (Non-Af Amer) 45 L Glucose 112 H Calcium 9.0 Total Bilirubin 1.2 AST 31 ALT 27 Alkaline Phosphatase 62 Total Protein 6.6 Albumin 3.1 L Impressions: Chest X-Ray 01/23/18 20:33 IMPRESSION: No active disease. Head CT 01/23/18 20:33 IMPRESSION: Atrophy and chronic small vessel ischemic changes with tiny likely all old bilateral lacunar infarcts but if there is high clinical concern for acute infarct, MRI could better evaluate. Head MRI 01/24/18 01:25 IMPRESSION: 1. Acute left MCA distribution infarct. 2. Other changes include atrophy and chronic small vessel disease. EVIDENCE OF ACUTE STROKE: NO. Carotid Doppler Study 01/25/18 00:00 IMPRESSION: NO HEMODYNAMICALLY SIGNIFICANT STENOSIS. Modified Barium Swallow 01/25/18 00:00 IMPRESSION: ASPIRATION SEEN WITH THIN BARIUM.PLEASE SEE SPEECH PATHOLOGIST REPORT FOR OTHER FINDINGS AND RECOMMENDATIONS. Renal Ultrasound 01/26/18 00:00 IMPRESSION: Mild bilateral renal cortical thinning and increased echogenicity No hydronephrosis. Assessment & Plan - Time Time Spent with patient: 15-24 minutes - Plan Summary Plan Summary: OK to go to Acute rehab in [place] where his daughter is
[2018-01-29 11:24] LABS: PATH REVIEW PATHOLOGIST REVIEWED
== END 2018-01-29 10:28 | disposition short-term general hospital (02) | DRG 65 ==
LOC: ER 20:05 → UNDOADMIN 23:42 → EH 23:42 → 3N 01-24 04:47 → EH 01-24 04:47 → 3N 01-25 10:52
PROVIDERS: ADMIT Internal Medicine; ATTEND Internal Medicine
PROC: 3E0G76Z Introduction of Nutritional Substance into Upper GI, Via Natural or Artificial Opening (ICD-10-PCS; 2018-01-28)
PROC: 0DH63UZ Insertion of Feeding Device into Stomach, Percutaneous Approach (ICD-10-PCS; principal; 2018-01-28 08:30)
DX: I63.412 Cerebral infarction due to embolism of left middle cerebral artery (principal); I16.1 Hypertensive emergency; N17.9 Acute kidney failure, unspecified; G81.91 Hemiplegia, unspecified affecting right dominant side; E46 Unspecified protein-calorie malnutrition; I25.10 Atherosclerotic heart disease of native coronary artery without angina pectoris; I10 Essential (primary) hypertension; E11.9 Type 2 diabetes mellitus without complications; E78.00 Pure hypercholesterolemia, unspecified; R47.81 Slurred speech; R29.810 Facial weakness; K21.9 Gastro-esophageal reflux disease without esophagitis; F17.210 Nicotine dependence, cigarettes, uncomplicated; Z60.2 Problems related to living alone; I25.2 Old myocardial infarction; Z68.22 Body mass index [BMI] 22.0-22.9, adult; Z79.899 Other long term (current) drug therapy; Z86.73 Personal history of transient ischemic attack (TIA), and cerebral infarction without residual deficits
CPT/HCPCS: 36415; 43246; 70450; 70551; 71045; 74230; 76770; 80048; 80053; 80061; 82550; 82553; 82962; 83036; 84484; 85025; 85610; 85730; 90686; 93005; 93010; 93306; 93880; 99291; G8978-GP; G8979-GP; G8987-GO; G8988-GO; G8996-GN; G8997-GN; J0171; J0360; J1200; J1610; J1644; J1885; J2250; J2310; J2405; J3010; J3490; J7030; L4386